=== PATIENT | male | born 1945 | race Caucasian/White ===

== ENCOUNTER 2017-06-21 19:06 | Emergency (ER) | payer OTHER ==
[2017-06-21 19:23] LABS: BASOPHILS % (AUTO) 0.7 % (0.0-5.0); EOSINOPHILS % (AUTO) 0.8 % (0.0-8.0); HEMATOCRIT 43.8 % (42-54); LYMPHOCYTES % (AUTO) 35.5 % (21.0-51.0); MEAN CORPUSCULAR HEMOGLOBIN 32.6 pg (27.0-33.0); MEAN CORPUSCULAR VOLUME 95.8 fL (79-99); MONOCYTES % (AUTO) 10.8 % (3.0-13.0); NEUTROPHILS % (AUTO) 52.2 % (40.0-77.0); PLATELET COUNT (AUTO) 198 K/uL (130-400); RED BLOOD CELL COUNT(AUTO) 4.57 MIL/uL (4.50-6.20); RED CELL DISTRIBUTION WIDTH 14.4 % (11.0-15.5); WHITE BLOOD COUNT (AUTO) 5.9 K/uL (4.8-10.8)
[2017-06-21 19:32] LABS: CREATININE 1.5 mg/dL (0.5-1.5); POTASSIUM 4.9 mmol/L (3.5-5.1)
[2017-06-21 19:36] LABS: ALBUMIN 3.7 g/dL (3.5-5.0); BILIRUBIN,TOTAL 0.6 mg/dL (0.2-1.0); TOTAL PROTEIN, SERUM 7.2 g/dL (6.0-8.3)
[2017-06-21 19:37] LABS: INR 0.93 (0.85-1.15); PARTIAL THROMBOPLASTIN TIME 25.9 SEC (26.3-35.5); PROTHROMBIN TIME 9.8 SEC (9.6-11.6)
[2017-06-21] MEDS ORDERED: ACETAMINOPHEN-CODEINE ELIXIR 5 ML UDCUP ONE (20:39)
== END 2017-06-21 22:07 | disposition home or self-care (01) ==
LOC: EDH 19:06
DX: S00.83XA Contusion of other part of head, initial encounter (principal); I10 Essential (primary) hypertension; E78.5 Hyperlipidemia, unspecified; F43.10 Post-traumatic stress disorder, unspecified; W18.39XA Other fall on same level, initial encounter; Y93.01 Activity, walking, marching and hiking; Y92.89 Other specified places as the place of occurrence of the external cause; Y99.8 Other external cause status
CPT/HCPCS: 36415; 70450; 70486; 80053; 84484; 85025; 85610; 85730; 93005

== ENCOUNTER 2018-02-27 14:13 | Emergency (ER) | payer OTHER ==
[2018-02-27 15:08] LABS: BASOPHILS % (AUTO) 0.6 % (0.0-5.0); EOSINOPHILS % (AUTO) 2.7 % (0.0-8.0); HEMATOCRIT 38.8 % (42-54); LYMPHOCYTES % (AUTO) 24.5 % (21.0-51.0); MEAN CORPUSCULAR HEMOGLOBIN 33.5 pg (27.0-33.0); MEAN CORPUSCULAR HGB CONC 34.8 g/dL (32.0-36.0); MEAN CORPUSCULAR VOLUME 96.3 fL (79-99); MONOCYTES % (AUTO) 8.4 % (3.0-13.0); NEUTROPHILS % (AUTO) 63.8 % (40.0-77.0); NUCLEATED RED BLOOD CELLS 0.1 % (0.0-0.19); PLATELET COUNT (AUTO) 215 K/uL (130-400); RED BLOOD CELL COUNT(AUTO) 4.03 MIL/uL (4.50-6.20); RED CELL DISTRIBUTION WIDTH 13.1 % (11.0-15.5); WHITE BLOOD COUNT (AUTO) 8.5 K/uL (4.8-10.8)
[2018-02-27 15:25] LABS: CREATININE 1.4 mg/dL (0.5-1.5); POTASSIUM 4.2 mmol/L (3.5-5.1)
[2018-02-27 15:30] LABS: ALBUMIN 3.9 g/dL (3.5-5.0); BILIRUBIN,TOTAL 0.4 mg/dL (0.2-1.0); TOTAL PROTEIN, SERUM 8.4 g/dL (6.0-8.3)
[2018-02-27 15:31] LABS: B-TYPE NATRIURETIC PEPTIDE 32 pg/mL (0-100)
[2018-02-27] MEDS ORDERED: HYOSCYAMINE SULFATE 0.125 MG TAB.SUBL SL ONE (16:11)
== END 2018-02-27 16:47 | disposition home or self-care (01) ==
LOC: EDH 14:13
DX: R60.9 Edema, unspecified (principal); G62.89 Other specified polyneuropathies; R10.9 Unspecified abdominal pain; E78.5 Hyperlipidemia, unspecified; I10 Essential (primary) hypertension; F43.10 Post-traumatic stress disorder, unspecified
CPT/HCPCS: 36415; 70450; 80053; 83880; 84484; 85025; 93005

== ENCOUNTER 2018-03-14 17:00 | Inpatient (IN) | payer OTHER ==
[~2018-03-14] VITALS: Ht 175.3 cm; Wt 85.6 kg
[2018-03-14 17:26] LABS: BASOPHILS % (AUTO) 0.7 % (0.0-5.0); EOSINOPHILS % (AUTO) 1.4 % (0.0-8.0); HEMATOCRIT 36.8 % (42-54); LYMPHOCYTES % (AUTO) 20.2 % (21.0-51.0); MEAN CORPUSCULAR HEMOGLOBIN 32.3 pg (27.0-33.0); MEAN CORPUSCULAR HGB CONC 33.6 g/dL (32.0-36.0); MEAN CORPUSCULAR VOLUME 96.2 fL (79-99); NEUTROPHILS % (AUTO) 68.7 % (40.0-77.0); NUCLEATED RED BLOOD CELLS 0.1 % (0.0-0.19); PLATELET COUNT (AUTO) 145 K/uL (130-400); RED BLOOD CELL COUNT(AUTO) 3.82 MIL/uL (4.50-6.20); RED CELL DISTRIBUTION WIDTH 12.8 % (11.0-15.5); WHITE BLOOD COUNT (AUTO) 8.1 K/uL (4.8-10.8)
[2018-03-14 17:36] LABS: CREATININE 1.2 mg/dL (0.5-1.5); POTASSIUM 3.8 mmol/L (3.5-5.1)
[2018-03-14 17:41] LABS: ALBUMIN 3.3 g/dL (3.5-5.0); BILIRUBIN,TOTAL 0.6 mg/dL (0.2-1.0); TOTAL PROTEIN, SERUM 7.8 g/dL (6.0-8.3)
[2018-03-14 17:49] LABS: CREATINE KINASE, TOTAL 52 U/L (21-232); MYOGLOBIN 52 ng/mL (10-92); TROPONIN I < 0.04 ng/mL (0.00-0.06)
[2018-03-14] MEDS ORDERED: CEFTRIAXONE SODIUM 1 GM ONE (17:53)
[2018-03-14] MEDS ORDERED: SODIUM CHLORIDE 0.9% 50 ML IV ONE (17:53)
[2018-03-14] MEDS ORDERED: LEVOFLOXACIN 750 MG/D5W 150 ML 150 ML ONE (18:11)
[2018-03-14] MEDS ORDERED: IPRATROPIUM/ALBUTEROL SULFATE 3 ML SOLUTION IH ONE ×3 (18:21→22:56)
[2018-03-14] MEDS ORDERED: ACETAMINOPHEN 325 MG TAB PO PRN (19:45)
[2018-03-14 21:45] VITALS: BP 136/71
[2018-03-14] MEDS: AZITHROMYCIN 500MG+NS 250ML 250 ML IV SCH (22:26)
[2018-03-14] MEDS: SODIUM CHLORIDE 0.9% 1000ML 1,000 ML IV SCH (22:27)
[2018-03-14] MEDS ORDERED: ALBUTEROL SULFATE 0.083% 2.5 MG/3 ML INH IH ONE (23:31)
[2018-03-15 00:08] VITALS: BP 125/64
[2018-03-15] MEDS: SODIUM CHLORIDE 0.9% 1000ML 1,000 ML IV SCH ×2 (03:45→17:38)
[2018-03-15 04:08] VITALS: BP 121/70
[2018-03-15 04:49] LABS: BASOPHILS % (AUTO) 0.7 % (0.0-5.0); EOSINOPHILS % (AUTO) 0.4 % (0.0-8.0); HEMATOCRIT 31.1 % (42-54); MEAN CORPUSCULAR HEMOGLOBIN 33.5 pg (27.0-33.0); MEAN CORPUSCULAR HGB CONC 34.9 g/dL (32.0-36.0); MEAN CORPUSCULAR VOLUME 96.1 fL (79-99); MONOCYTES % (AUTO) 8.8 % (3.0-13.0); NEUTROPHILS % (AUTO) 75.1 % (40.0-77.0); NUCLEATED RED BLOOD CELLS 0.1 % (0.0-0.19); PLATELET COUNT (AUTO) 154 K/uL (130-400); RED BLOOD CELL COUNT(AUTO) 3.24 MIL/uL (4.50-6.20); RED CELL DISTRIBUTION WIDTH 12.9 % (11.0-15.5); WHITE BLOOD COUNT (AUTO) 8.6 K/uL (4.8-10.8)
[2018-03-15 05:15] LABS: ALBUMIN 2.8 g/dL (3.5-5.0); BILIRUBIN,TOTAL 0.3 mg/dL (0.2-1.0); CREATININE 1.1 mg/dL (0.5-1.5); POTASSIUM 3.6 mmol/L (3.5-5.1); TOTAL PROTEIN, SERUM 6.7 g/dL (6.0-8.3)
[2018-03-15 08:19] VITALS: BP 123/72
[2018-03-15] MEDS ORDERED: IPRATROPIUM/ALBUTEROL SULFATE 3 ML SOLUTION IH SCH (10:00)
[2018-03-15] MEDS: IPRATROPIUM/ALBUTEROL SULFATE 3 ML SOLUTION IH SCH ×3 (11:10→23:01)
[2018-03-15] MEDS ORDERED: ALBUTEROL SULFATE 0.083% 2.5 MG/3 ML INH IH SCH ×2 (12:00→20:00)
[2018-03-15 12:44] VITALS: BP 131/66
[2018-03-15] MEDS: GUAIFENESIN-DM 200/20 MG 10 ML PO SCH ×3 (12:46→22:43)
[2018-03-15 16:19] VITALS: BP 138/75
[2018-03-15] MEDS: ACETAMINOPHEN-CODEINE 300/30MG TAB PO PRN (17:38)
[2018-03-15] MEDS: LEVOFLOXACIN 750 MG/D5W 150 ML 150 ML IV SCH (17:38)
[2018-03-15] MEDS: METHYLPREDNISOLONE SOD SUCC 40MG/ML 1ML IVP SCH ×2 (17:38→20:07)
[2018-03-15] MEDS: FAMOTIDINE 20MG TAB 20 MG TAB PO SCH (20:07)
[2018-03-15] MEDS: AZITHROMYCIN 500MG+NS 250ML 250 ML IV SCH (20:07)
[2018-03-15 20:08] VITALS: BP 134/74
[2018-03-15] MEDS ORDERED: ALPRAZOLAM 0.25 MG TABLET ONE (22:45)
[2018-03-16 00:08] VITALS: BP 136/78
[2018-03-16] MEDS: GUAIFENESIN-DM 200/20 MG 10 ML PO SCH ×4 (03:29→21:36)
[2018-03-16 04:08] VITALS: BP 130/75
[2018-03-16 04:11] LABS: BASOPHILS % (AUTO) 0.2 % (0.0-5.0); HEMATOCRIT 34.6 % (42-54); LYMPHOCYTES % (AUTO) 9.7 % (21.0-51.0); MEAN CORPUSCULAR HEMOGLOBIN 32.4 pg (27.0-33.0); MEAN CORPUSCULAR HGB CONC 33.5 g/dL (32.0-36.0); MEAN CORPUSCULAR VOLUME 96.6 fL (79-99); MONOCYTES % (AUTO) 1.5 % (3.0-13.0); NEUTROPHILS % (AUTO) 88.6 % (40.0-77.0); NUCLEATED RED BLOOD CELLS 0.1 % (0.0-0.19); PLATELET COUNT (AUTO) 147 K/uL (130-400); RED BLOOD CELL COUNT(AUTO) 3.59 MIL/uL (4.50-6.20); RED CELL DISTRIBUTION WIDTH 13.1 % (11.0-15.5); WHITE BLOOD COUNT (AUTO) 4.8 K/uL (4.8-10.8)
[2018-03-16 04:18] LABS: CREATININE 1.4 mg/dL (0.5-1.5); POTASSIUM 3.8 mmol/L (3.5-5.1)
[2018-03-16] MEDS: IPRATROPIUM/ALBUTEROL SULFATE 3 ML SOLUTION IH SCH ×4 (06:16→23:53)
[2018-03-16 07:00] VITALS: BP 131/71
[2018-03-16] MEDS: METHYLPREDNISOLONE SOD SUCC 40MG/ML 1ML IVP SCH ×2 (09:55→14:12)
[2018-03-16] MEDS: FAMOTIDINE 20MG TAB 20 MG TAB PO SCH ×2 (09:55→21:35)
[2018-03-16] MEDS: ENOXAPARIN SODIUM 30 MG/0.3 ML SQ SCH (09:56)
[2018-03-16 11:00] VITALS: BP 136/77
[2018-03-16] MEDS: CEFEPIME HCL 1 GM VIAL IVP SCH ×2 (14:12→21:36)
[2018-03-16 16:00] VITALS: BP 139/82
[2018-03-16] MEDS: ACETAMINOPHEN-CODEINE 300/30MG TAB PO PRN (16:54)
[2018-03-16] MEDS: SODIUM CHLORIDE 0.9% 1000ML 1,000 ML IV SCH (17:42)
[2018-03-16] MEDS: LEVOFLOXACIN 750 MG/D5W 150 ML 150 ML IV SCH (17:50)
[2018-03-16 19:15] VITALS: BP 128/85
[2018-03-16] MEDS: PREDNISONE 20 MG TABLET PO SCH (21:35)
[2018-03-16] MEDS: ALPRAZOLAM 0.25 MG TABLET PO PRN (23:07)
[2018-03-17 00:10] VITALS: BP 147/81
[2018-03-17 04:10] VITALS: BP 131/69
[2018-03-17] MEDS: GUAIFENESIN-DM 200/20 MG 10 ML PO SCH ×4 (04:20→21:21)
[2018-03-17] MEDS: CEFEPIME HCL 1 GM VIAL IVP SCH ×3 (05:30→21:21)
[2018-03-17 05:58] LABS: BASOPHILS % (AUTO) 0.1 % (0.0-5.0); HEMATOCRIT 30.9 % (42-54); LYMPHOCYTES % (AUTO) 7.9 % (21.0-51.0); MEAN CORPUSCULAR HEMOGLOBIN 33.5 pg (27.0-33.0); MEAN CORPUSCULAR HGB CONC 34.9 g/dL (32.0-36.0); MEAN CORPUSCULAR VOLUME 96.1 fL (79-99); MONOCYTES % (AUTO) 4.1 % (3.0-13.0); NEUTROPHILS % (AUTO) 87.9 % (40.0-77.0); NUCLEATED RED BLOOD CELLS 0.1 % (0.0-0.19); PLATELET COUNT (AUTO) 168 K/uL (130-400); RED BLOOD CELL COUNT(AUTO) 3.22 MIL/uL (4.50-6.20); RED CELL DISTRIBUTION WIDTH 13.1 % (11.0-15.5)
[2018-03-17 06:05] LABS: CREATININE 1.2 mg/dL (0.5-1.5); POTASSIUM 4.1 mmol/L (3.5-5.1)
[2018-03-17] MEDS: IPRATROPIUM/ALBUTEROL SULFATE 3 ML SOLUTION IH SCH ×3 (06:56→18:40)
[2018-03-17 08:00] VITALS: BP 137/75
[2018-03-17] MEDS: PREDNISONE 20 MG TABLET PO SCH ×2 (10:09→20:22)
[2018-03-17] MEDS: FAMOTIDINE 20MG TAB 20 MG TAB PO SCH ×2 (10:09→20:22)
[2018-03-17] MEDS: ENOXAPARIN SODIUM 30 MG/0.3 ML SQ SCH (10:10)
[2018-03-17] MEDS: ACETAMINOPHEN-CODEINE 300/30MG TAB PO PRN ×2 (10:12→16:32)
[2018-03-17 11:00] VITALS: BP 128/75
[2018-03-17 16:00] VITALS: BP 133/73
[2018-03-17] MEDS: LEVOFLOXACIN 750 MG/D5W 150 ML 150 ML IV SCH (16:30)
[2018-03-17] MEDS: SODIUM CHLORIDE 0.9% 1000ML 1,000 ML IV SCH (17:42)
[2018-03-17 19:10] VITALS: BP 128/74
[2018-03-17] MEDS ORDERED: FLUO-126 PO (22:00)
[2018-03-17] MEDS ORDERED: MULT-248 PO (22:00)
[2018-03-17] MEDS ORDERED: ALPR0.5T8 PO (22:00)
[2018-03-17] MEDS ORDERED: CETI10TA57 PO (22:00)
[2018-03-17] MEDS ORDERED: PREG100C PO (22:00)
[2018-03-17] MEDS ORDERED: VITA1CAP85 PO (22:00)
[2018-03-17] MEDS ORDERED: MELA3TAB PO (22:00)
[2018-03-17] MEDS ORDERED: FLUT16H NS (22:00)
[2018-03-17] MEDS ORDERED: HYDR-4068 PO (22:00)
[2018-03-17] MEDS ORDERED: PRAV20TA4 PO (22:00)
[2018-03-17] MEDS ORDERED: CHOL100044 PO (22:00)
[2018-03-17] MEDS: ALPRAZOLAM 0.25 MG TABLET PO PRN (22:53)
[2018-03-18] VITALS (7 sets, daily range): BP systolic 132–144; BP diastolic 73–80
[2018-03-18] MEDS: IPRATROPIUM/ALBUTEROL SULFATE 3 ML SOLUTION IH SCH ×4 (00:09→18:00)
[2018-03-18] MEDS ORDERED: ALPRAZOLAM 0.5 MG TABLET PO PRN (01:45)
[2018-03-18] MEDS: GUAIFENESIN-DM 200/20 MG 10 ML PO SCH ×4 (03:58→21:15)
[2018-03-18] MEDS: CEFEPIME HCL 1 GM VIAL IVP SCH ×3 (05:11→21:15)
[2018-03-18 05:47] LABS: BASOPHILS % (AUTO) 0.1 % (0.0-5.0); HEMATOCRIT 31.9 % (42-54); LYMPHOCYTES % (AUTO) 7.5 % (21.0-51.0); MEAN CORPUSCULAR HEMOGLOBIN 32.4 pg (27.0-33.0); MEAN CORPUSCULAR HGB CONC 34.1 g/dL (32.0-36.0); MONOCYTES % (AUTO) 6.5 % (3.0-13.0); NEUTROPHILS % (AUTO) 85.9 % (40.0-77.0); NUCLEATED RED BLOOD CELLS 0.1 % (0.0-0.19); PLATELET COUNT (AUTO) 148 K/uL (130-400); RED BLOOD CELL COUNT(AUTO) 3.36 MIL/uL (4.50-6.20); RED CELL DISTRIBUTION WIDTH 13.5 % (11.0-15.5); WHITE BLOOD COUNT (AUTO) 8.1 K/uL (4.8-10.8)
[2018-03-18 05:57] LABS: CREATININE 1.3 mg/dL (0.5-1.5)
[2018-03-18] MEDS: ***HM***Cholecalciferol (Vitamin D3) 1,000 UNIT PO SCH (09:00)
[2018-03-18] MEDS: MULTIVITAMIN WITH MINERALS TABLET PO SCH (10:24)
[2018-03-18] MEDS: VITAMIN B COMPLEX 1 CAPSULE PO SCH (10:24)
[2018-03-18] MEDS: FAMOTIDINE 20MG TAB 20 MG TAB PO SCH ×2 (10:24→20:14)
[2018-03-18] MEDS: FLUOXETINE HCL 20 MG CAPSULE PO SCH (10:24)
[2018-03-18] MEDS: PREGABALIN 100 MG CAPSULE PO SCH ×2 (10:24→20:14)
[2018-03-18] MEDS: CETIRIZINE HCL 5 MG TABLET PO SCH (10:24)
[2018-03-18] MEDS: PREDNISONE 20 MG TABLET PO SCH ×2 (10:24→20:14)
[2018-03-18] MEDS: ENOXAPARIN SODIUM 30 MG/0.3 ML SQ SCH (10:29)
[2018-03-18] MEDS: FLUTICASONE PROPIONATE 50MCG/SPRAY 16 GM BOTTLE NS SCH (10:31)
[2018-03-18] MEDS: ACETAMINOPHEN-CODEINE 300/30MG TAB PO PRN (13:24)
[2018-03-18] MEDS: LEVOFLOXACIN 750 MG/D5W 150 ML 150 ML IV SCH (16:52)
[2018-03-18] MEDS ORDERED: ATORVASTATIN CALCIUM 10 MG TABLET PO SCH (21:00)
[2018-03-19] MEDS: IPRATROPIUM/ALBUTEROL SULFATE 3 ML SOLUTION IH SCH ×3 (00:30→11:07)
[2018-03-19] MEDS: GUAIFENESIN-DM 200/20 MG 10 ML PO SCH ×3 (03:24→16:23)
[2018-03-19 04:10] VITALS: BP 134/77
[2018-03-19] MEDS: CEFEPIME HCL 1 GM VIAL IVP SCH ×2 (04:59→14:41)
[2018-03-19 05:20] LABS: BASOPHILS % (AUTO) 0.1 % (0.0-5.0); HEMATOCRIT 32.6 % (42-54); LYMPHOCYTES % (AUTO) 9.3 % (21.0-51.0); MEAN CORPUSCULAR HEMOGLOBIN 33.1 pg (27.0-33.0); MEAN CORPUSCULAR HGB CONC 34.8 g/dL (32.0-36.0); MEAN CORPUSCULAR VOLUME 95.2 fL (79-99); NEUTROPHILS % (AUTO) 83.6 % (40.0-77.0); PLATELET COUNT (AUTO) 166 K/uL (130-400); RED BLOOD CELL COUNT(AUTO) 3.42 MIL/uL (4.50-6.20); WHITE BLOOD COUNT (AUTO) 7.1 K/uL (4.8-10.8)
[2018-03-19 05:37] LABS: CREATININE 1.2 mg/dL (0.5-1.5); POTASSIUM 4.6 mmol/L (3.5-5.1)
[2018-03-19] MEDS: FAMOTIDINE 20MG TAB 20 MG TAB PO SCH (08:06)
[2018-03-19] MEDS: MULTIVITAMIN WITH MINERALS TABLET PO SCH (08:06)
[2018-03-19] MEDS: VITAMIN B COMPLEX 1 CAPSULE PO SCH (08:06)
[2018-03-19] MEDS: CETIRIZINE HCL 5 MG TABLET PO SCH (08:06)
[2018-03-19] MEDS: FLUOXETINE HCL 20 MG CAPSULE PO SCH (08:06)
[2018-03-19] MEDS: ENOXAPARIN SODIUM 30 MG/0.3 ML SQ SCH (08:07)
[2018-03-19] MEDS: PREDNISONE 20 MG TABLET PO SCH (08:07)
[2018-03-19] MEDS: PREGABALIN 100 MG CAPSULE PO SCH (08:07)
[2018-03-19] MEDS: ***HM***Cholecalciferol (Vitamin D3) 1,000 UNIT PO SCH (08:07)
[2018-03-19 08:40] VITALS: BP 150/78
[2018-03-19] MEDS: FLUTICASONE PROPIONATE 50MCG/SPRAY 16 GM BOTTLE NS SCH (09:00)
[2018-03-19 12:04] VITALS: BP 131/72
[2018-03-19] MEDS ORDERED: LEVO500T89 PO (13:36)
[2018-03-19] MEDS: LEVOFLOXACIN 750 MG/D5W 150 ML 150 ML IV SCH (16:19)
[2018-03-19] MEDS: ACETAMINOPHEN-CODEINE 300/30MG TAB PO PRN (16:37)
== END 2018-03-19 17:59 | disposition home or self-care (01) | DRG 871 ==
LOC: EDH 17:00 → EDHIP 18:20 → 3DH 20:13
PROVIDERS: ADMIT Hospitalist; ATTEND Hospitalist
DX: A41.9 Sepsis, unspecified organism (principal); J18.9 Pneumonia, unspecified organism; J96.90 Respiratory failure, unspecified, unspecified whether with hypoxia or hypercapnia; N17.9 Acute kidney failure, unspecified; I10 Essential (primary) hypertension; E78.5 Hyperlipidemia, unspecified; B95.4 Other streptococcus as the cause of diseases classified elsewhere; B96.89 Other specified bacterial agents as the cause of diseases classified elsewhere; F43.10 Post-traumatic stress disorder, unspecified; N40.0 Benign prostatic hyperplasia without lower urinary tract symptoms; F32.9 Major depressive disorder, single episode, unspecified; G62.9 Polyneuropathy, unspecified; R53.81 Other malaise; Z88.8 Allergy status to other drugs, medicaments and biological substances
CPT/HCPCS: 36415; 71045; 71250; 80048; 80053; 82550; 82948; 83605; 83874; 84484; 85025; 86140; 87040; 87077; 87186; 92610; 93005; 94640; 94664; A4218; J0456; J0692; J0696; J1650; J1956; J2920; J7030

== ENCOUNTER 2019-01-08 16:28 | Emergency (ER) | payer OTHER ==
[~2019-01-08 16:28] MED LIST: ALPR0.5T8 PO; CETI10TA57 PO; CHOL100044 PO; FLUO-126 PO; FLUT16H NS; FURO20TA6 PO; GEMF600T5 PO; HYDR-4068 PO; LEVO500T2 PO; MELA3TAB PO; MULT-248 PO; OMEP40CA37 PO; PREG100C PO; RANI150T7 PO; VITA1CAP85 PO
== END 2019-01-08 18:04 | disposition home or self-care (01) ==
LOC: EDH 16:28
DX: S93.491A Sprain of other ligament of right ankle, initial encounter (principal); R20.2 Paresthesia of skin; G62.89 Other specified polyneuropathies; F32.9 Major depressive disorder, single episode, unspecified; E78.5 Hyperlipidemia, unspecified; I10 Essential (primary) hypertension; F43.10 Post-traumatic stress disorder, unspecified; Z88.8 Allergy status to other drugs, medicaments and biological substances; X50.0XXA Overexertion from strenuous movement or load, initial encounter; Y93.89 Activity, other specified; Y92.098 Other place in other non-institutional residence as the place of occurrence of the external cause; Y99.8 Other external cause status
CPT/HCPCS: 73610; 73620

== ENCOUNTER 2020-03-06 01:56 | Inpatient (IN) | payer OTHER, MEDICARE ==
[2020-03-06] VITALS (7 sets, daily range): BP systolic 103–133; BP diastolic 56–78
[~2020-03-06] VITALS: Ht 175.3 cm; Wt 76.3 kg
[~2020-03-06 01:56] MED LIST changes: -FLUO-126 PO; +FLUO20CA35 PO; -MELA3TAB PO; +MELA3TAB41 PO; +OMEP40CA13 PO; -OMEP40CA37 PO
[2020-03-06 02:33] LABS: BASOPHILS % (AUTO) 0.4 % (0.0-5.0); EOSINOPHILS % (AUTO) 3.4 % (0.0-8.0); HEMATOCRIT 40.8 % (42-54); LYMPHOCYTES % (AUTO) 38.4 % (21.0-51.0); MEAN CORPUSCULAR HEMOGLOBIN 32.1 pg (27.0-33.0); MEAN CORPUSCULAR HGB CONC 33.1 g/dL (32.0-36.0); MEAN CORPUSCULAR VOLUME 96.9 fL (79-99); MONOCYTES % (AUTO) 11.4 % (3.0-13.0); NEUTROPHILS % (AUTO) 46.2 % (40.0-77.0); PLATELET COUNT (AUTO) 149 K/uL (130-400); RED BLOOD CELL COUNT(AUTO) 4.21 MIL/uL (4.50-6.20); RED CELL DISTRIBUTION WIDTH 13.2 % (11.0-15.5); WHITE BLOOD COUNT (AUTO) 5.6 K/uL (4.8-10.8)
[2020-03-06] MEDS ORDERED: THIAMINE HCL 100 MG/ML 2ML VIAL ONE (02:42)
[2020-03-06 02:43] LABS: CARBON DIOXIDE 25 mmol/L (21-32); CHLORIDE 100 mmol/L (101-111); CREATININE 1.2 mg/dL (0.5-1.5); GLOMERULAR FILTR. RATE CALC 63 mL/min (>60); GLUCOSE,RANDOM 139 mg/dL (70-105); POTASSIUM 3.8 mmol/L (3.5-5.1); SODIUM SERUM 136 mmol/L (136-145); UREA NITROGEN, BLOOD 16 mg/dL (7-18)
[2020-03-06 02:45] LABS: INR 0.9 (0.85-1.15); PARTIAL THROMBOPLASTIN TIME 27.5 SEC (26.3-35.5); PROTHROMBIN TIME 9.8 SEC (9.6-11.6)
[2020-03-06 02:47] LABS: ACETAMINOPHEN 9 mcg/mL (10-29); ALANINE AMINOTRANSFERASE 18 U/L (12-78); ALBUMIN 3.3 g/dL (3.5-5.0); ALCOHOL, BLOOD 197 mg/dL (0-10); ASPARTATE AMINOTRANSFERASE 29 U/L (10-37); BILIRUBIN,TOTAL 0.3 mg/dL (0.2-1.0); LIPASE 88 U/L (114-286); SALICYLATE < 2.8 mg/dL (2.8-20.0); TOTAL PROTEIN, SERUM 6.9 g/dL (6.0-8.3)
[2020-03-06 03:19] LABS: APPEARANCE,URINE CLEAR (CLEAR); BILIRUBIN,URINE NEGATIVE (NEGATIVE); GLUCOSE, URINE (UA) NEGATIVE (NEGATIVE); KETONES,URINE NEGATIVE (NEGATIVE); LEUKOCYTE ESTERASE ,URINE SMALL (NEGATIVE); NITRATE,URINE NEGATIVE (NEGATIVE); OCCULT BLOOD,URINE TRACE-INTACT (NEGATIVE); PH,URINE 5.5 (5.0-8.0); PROTEIN,URINE NEGATIVE (NEGATIVE); UROBILINOGEN,URINE 0.2 mg/dL (0.2-1.0)
[2020-03-06 03:23] LABS: COLOR,URINE STRAW (YELLOW)
[2020-03-06 03:24] LABS: BACTERIA,URINE None Seen /HPF (None Seen); RBC,URINE 0-1 /HPF (0-1); SQUAMOUS EPITHELIAL CELL,UR Rare /HPF (0-2); WBC,URINE 0-1 /HPF (0-1)
[2020-03-06 03:29] LABS: AMPHET/METH SCREEN,URINE NEGATIVE (NEGATIVE); BARBITURATE SCREEN, URINE NEGATIVE (NEGATIVE); BENZODIAZEPINES SCREEN,URINE POSITIVE (NEGATIVE); CANNABINOID SCREEN,URINE NEGATIVE (NEGATIVE); COCAINE SCREEN,URINE NEGATIVE (NEGATIVE); OPIATE SCREEN,URINE NEGATIVE (NEGATIVE); PHENCYCLIDINE SCREEN,URINE NEGATIVE (NEGATIVE)
[2020-03-06] MEDS ORDERED: FENTANYL 2500MCG+NS 250ML 250 ML IV ONE ×2 (03:57→21:04)
[2020-03-06] MEDS ORDERED: MIDAZOLAM HCL 5 MG/ML 2ML VIAL IV ONE (03:57)
[2020-03-06] MEDS ORDERED: SODIUM CHLORIDE 0.9% 50 ML IV ONE (03:58)
[2020-03-06 04:34] LABS: ABG HCO3 22.1 mmol/L (21.0-28.0); ABG OXYGEN SATURATION 98.4 % (95.0-99.0); ABG PCO2 48 mmHg (35-48)
[2020-03-06] MEDS ORDERED: MIDAZOLAM HCL 1 MG/ML 2ML VIAL ONE (04:49)
[2020-03-06] MEDS: CEFTRIAXONE SODIUM 1 GM IV SCH (05:30)
[2020-03-06] MEDS: SODIUM CHLORIDE 0.9% 1000ML 1,000 ML IV SCH ×2 (05:30→15:30)
[2020-03-06] MEDS ORDERED: ONDANSETRON HCL 4 MG/2 ML VIAL IV PRN ×2 (05:30→12:45)
[2020-03-06] MEDS ORDERED: POTASSIUM CHLORIDE 20 MEQ ERTAB PO PRN (05:45)
[2020-03-06] MEDS ORDERED: LIDOCAINE HCL-MPF 1% 2ML VIAL IV PRN (05:45)
[2020-03-06] MEDS ORDERED: CEFTRIAXONE SODIUM 1 GM ONE (06:12)
[2020-03-06] MEDS ORDERED: DEXMEDETOMIDINE HCL 200 MCG in SODIUM CHLORIDE 0.9% 50 ML IV SCH (06:30)
[2020-03-06] MEDS ORDERED: ALBUTEROL SULFATE 0.083% 2.5 MG/3 ML INH IH ONE ×2 (06:42→12:35)
[2020-03-06] MEDS: ALBUTEROL SULFATE 0.083% 2.5 MG/3 ML INH IH SCH ×3 (06:45→18:26)
[2020-03-06] MEDS ORDERED: MIDAZOLAM 100MG-0.9% NS 100ML 100 ML IV SCH (07:15)
[2020-03-06] MEDS ORDERED: ENOXAPARIN SODIUM 40 MG/0.4 ML SYRINGE SQ ONE (07:46)
[2020-03-06] MEDS ORDERED: FAMOTIDINE/PF 20 MG/2 ML VIAL IV ONE (07:47)
[2020-03-06] MEDS: FAMOTIDINE/PF 20 MG/2 ML VIAL IV SCH ×2 (09:00→23:32)
[2020-03-06] MEDS: ENOXAPARIN SODIUM 40 MG/0.4 ML SYRINGE SQ SCH (09:00)
[2020-03-06] MEDS ORDERED: LORAZEPAM 2 MG/ML 1 ML VIAL IVP PRN (12:45)
[2020-03-06] MEDS ORDERED: PHARMACY COMMUNICATION MISC PRN (12:45)
[2020-03-06] MEDS ORDERED: CHLORDIAZEPOXIDE HCL 25 MG CAP PO PRN (12:45)
[2020-03-06 14:57] LABS: ABG BASE EXCESS -0.2 mmol/L (-2.0-3.0); ABG HCO3 22.2 mmol/L (21.0-28.0); ABG OXYGEN SATURATION 95.6 % (95.0-99.0); ABG PCO2 31 mmHg (35-48)
[2020-03-06] MEDS ORDERED: PROPOFOL 1000 MG/100 ML 100 ML IV ONE (15:37)
[2020-03-06] MEDS ORDERED: SODIUM CHLORIDE 0.9% 1000ML 2,000 ML IV ONE (16:00)
[2020-03-06] MEDS: CHLORHEXIDINE GLUCONATE 473 ML MOUTHWASH MM SCH (21:00)
[2020-03-07] VITALS (21 sets, daily range): BP systolic 99–139; BP diastolic 53–80
[2020-03-07] MEDS: ALBUTEROL SULFATE 0.083% 2.5 MG/3 ML INH IH SCH ×5 (00:12→23:30)
[2020-03-07] MEDS: SODIUM CHLORIDE 0.9% 1000ML 1,000 ML IV SCH (01:55)
[2020-03-07] MEDS: PROPOFOL 1000 MG/100 ML 100 ML IV SCH ×2 (02:12→20:05)
--- NOTE | 2020-03-07 02:23 | NUR ---
ANTONIO Garces was paged and he came and gvae order to give 1 amp of D50 IVP.
[2020-03-07] MEDS ORDERED: DEXTROSE 50%-WATER 50 ML DISP.SYRIN IV ONE (02:25)
[2020-03-07] MEDS ORDERED: DEXTROSE 50%-WATER 25 GM/50 ML VIAL IV SCH (02:30)
[2020-03-07 03:34] LABS: BASOPHILS % (AUTO) 0.3 % (0.0-5.0); EOSINOPHILS % (AUTO) 0.4 % (0.0-8.0); HEMATOCRIT 36.1 % (42-54); LYMPHOCYTES % (AUTO) 10.4 % (21.0-51.0); MEAN CORPUSCULAR HEMOGLOBIN 31.7 pg (27.0-33.0); MEAN CORPUSCULAR VOLUME 96.3 fL (79-99); MONOCYTES % (AUTO) 7.8 % (3.0-13.0); NEUTROPHILS % (AUTO) 80.7 % (40.0-77.0); PLATELET COUNT (AUTO) 115 K/uL (130-400); RED BLOOD CELL COUNT(AUTO) 3.75 MIL/uL (4.50-6.20); RED CELL DISTRIBUTION WIDTH 13.4 % (11.0-15.5); WHITE BLOOD COUNT (AUTO) 9.5 K/uL (4.8-10.8)
[2020-03-07 03:45] LABS: ALBUMIN 2.2 g/dL (3.5-5.0); BILIRUBIN,TOTAL 0.6 mg/dL (0.2-1.0); CREATININE 0.9 mg/dL (0.5-1.5); MAGNESIUM 1.3 mg/dL (1.80-2.40); PHOSPHORUS 1.4 mg/dL (2.5-4.9); TOTAL PROTEIN, SERUM 4.9 g/dL (6.0-8.3)
[2020-03-07 03:47] LABS: POTASSIUM 2.7 mmol/L (3.5-5.1)
[2020-03-07 04:50] LABS: ABG BASE EXCESS -0.5 mmol/L (-2.0-3.0); ABG HCO3 21.5 mmol/L (21.0-28.0); ABG OXYGEN SATURATION 97.7 % (95.0-99.0); ABG PCO2 29 mmHg (35-48)
[2020-03-07] MEDS: CEFTRIAXONE SODIUM 1 GM IV SCH (05:28)
[2020-03-07] MEDS: POTASSIUM CHLORIDE 20MEQ/100ML 100 ML IV PRN ×2 (05:31→09:11)
[2020-03-07] MEDS: DEXTROSE 5 %-0.45 % NACL 1,000 ML IV SCH ×2 (06:48→20:07)
[2020-03-07] MEDS ORDERED: FLUO20SO2 PO (07:24)
[2020-03-07] MEDS ORDERED: BENZ200C53 PO (07:24)
--- NOTE | 2020-03-07 07:25 | NUR ---
pATIENT REMAINED VENTED AND SEDATED ENDORSED HOME MEDS AND CELLPHONE AND PERSONAL BELONGINGS TO INCOMING nod TO BE TURNED OVER TO FAMILY .
[2020-03-07] MEDS ORDERED: GLUCAGON 1MG KIT 1 MG ML IM PRN (07:30)
[2020-03-07] MEDS: INSULIN HUMULIN R 100 UNIT/ML 3ML SQ SCH ×4 (07:30→21:00)
[2020-03-07] MEDS ORDERED: DEXTROSE 50%-WATER 50 ML DISP.SYRIN IV PRN (07:30)
[2020-03-07] MEDS: THIAMINE HCL 100 MG/ML 2ML VIAL IM SCH (08:59)
[2020-03-07] MEDS: ENOXAPARIN SODIUM 40 MG/0.4 ML SYRINGE SQ SCH (09:01)
[2020-03-07] MEDS: FOLIC ACID 1 MG TABLET PO SCH (09:01)
[2020-03-07] MEDS: MULTIVITAMIN TABLET PO SCH (09:02)
[2020-03-07] MEDS: FAMOTIDINE/PF 20 MG/2 ML VIAL IV SCH ×2 (09:09→20:05)
[2020-03-07] MEDS: MAGNESIUM 2GM PREMIX 50ML 50 ML IV PRN (09:10)
[2020-03-07] MEDS: CHLORHEXIDINE GLUCONATE 473 ML MOUTHWASH MM SCH ×2 (09:11→21:07)
--- NOTE | 2020-03-07 18:49 | NUR ---
ASSESSMENT PATIENT WAS WEANED OFF SEDATION AT 1100AM AND BREATHING TRAILS WERE STARTED. PATIENT REMAINS SEDATED EVEN WITHOUT MEDS. AT 1600 PT WAS PUT BACK ON VENT AND BREATHING TRAILS WILL BE CONTINUED TOMORROW. DAUGHTER WAS UPDATED ON PATIENTS CONDITION 3 TIMES DURING THE SHIFT.PTHAS BEEN SR WITH OCCASIONAL PVCs. will continue to monitor.
--- NOTE | 2020-03-07 18:50 | NUR ---
cm note call made to listed phone #s and no answer to calls, left message pending callback. will continue to followup
[2020-03-08] VITALS (17 sets, daily range): BP systolic 95–154; BP diastolic 60–81
[2020-03-08 03:51] LABS: HEMATOCRIT 37.3 % (42-54); MEAN CORPUSCULAR HEMOGLOBIN 31.9 pg (27.0-33.0); MEAN CORPUSCULAR VOLUME 96.6 fL (79-99); RED BLOOD CELL COUNT(AUTO) 3.86 MIL/uL (4.50-6.20); WHITE BLOOD COUNT (AUTO) 8.7 K/uL (4.8-10.8)
[2020-03-08 04:07] LABS: ALBUMIN 2.5 g/dL (3.5-5.0); BILIRUBIN,TOTAL 0.6 mg/dL (0.2-1.0); CREATININE 1.2 mg/dL (0.5-1.5); MAGNESIUM 2.2 mg/dL (1.80-2.40); PHOSPHORUS 2.3 mg/dL (2.5-4.9); POTASSIUM 3.6 mmol/L (3.5-5.1); TOTAL PROTEIN, SERUM 6.2 g/dL (6.0-8.3)
[2020-03-08] MEDS: CEFTRIAXONE SODIUM 1 GM IV SCH (05:34)
[2020-03-08] MEDS: POTASSIUM CHLORIDE 10% ELIXIR 20 MEQ/15 ML UDCUP PO PRN (05:38)
[2020-03-08] MEDS: ALBUTEROL SULFATE 0.083% 2.5 MG/3 ML INH IH SCH ×3 (06:24→19:01)
[2020-03-08] MEDS: INSULIN HUMULIN R 100 UNIT/ML 3ML SQ SCH ×4 (07:30→19:54)
[2020-03-08] MEDS: FAMOTIDINE/PF 20 MG/2 ML VIAL IV SCH ×2 (09:12→19:39)
[2020-03-08] MEDS: THIAMINE HCL 100 MG/ML 2ML VIAL IM SCH (09:13)
[2020-03-08] MEDS: MULTIVITAMIN TABLET PO SCH (09:14)
[2020-03-08] MEDS: FOLIC ACID 1 MG TABLET PO SCH (09:14)
[2020-03-08] MEDS: ENOXAPARIN SODIUM 40 MG/0.4 ML SYRINGE SQ SCH (09:14)
[2020-03-08] MEDS ORDERED: LORAZEPAM 2 MG/ML 1 ML VIAL ONE (09:40)
[2020-03-08] MEDS: CHLORHEXIDINE GLUCONATE 473 ML MOUTHWASH MM SCH ×2 (09:52→19:40)
[2020-03-08] MEDS: DEXMEDETOMIDINE HCL 400 MCG in SODIUM CHLORIDE 0.9% 100 ML IV SCH (10:14)
[2020-03-08] MEDS: THIAMINE HCL 100 MG, FOLIC ACID 1 MG, M.V.I. IV [ADULT] 10 ML in SODIUM CHLORIDE 0.9% 1... IV SCH (10:16)
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
[2020-03-08 15:12] LABS: ABG BASE EXCESS -4.9 mmol/L (-2.0-3.0); ABG HCO3 19.1 mmol/L (21.0-28.0); ABG PCO2 33 mmHg (35-48)
[2020-03-08] MEDS: LORAZEPAM 2 MG/ML 1 ML VIAL IVP PRN (19:40)
[2020-03-09] VITALS (17 sets, daily range): BP systolic 112–168; BP diastolic 51–88
[2020-03-09] MEDS: ALBUTEROL SULFATE 0.083% 2.5 MG/3 ML INH IH SCH ×4 (00:14→18:36)
[2020-03-09 03:55] LABS: BASOPHILS % (AUTO) 0.3 % (0.0-5.0); EOSINOPHILS % (AUTO) 2.8 % (0.0-8.0); HEMATOCRIT 42.2 % (42-54); LYMPHOCYTES % (AUTO) 14.4 % (21.0-51.0); MEAN CORPUSCULAR HEMOGLOBIN 31.7 pg (27.0-33.0); MEAN CORPUSCULAR HGB CONC 32.9 g/dL (32.0-36.0); MEAN CORPUSCULAR VOLUME 96.3 fL (79-99); MONOCYTES % (AUTO) 8.4 % (3.0-13.0); NEUTROPHILS % (AUTO) 73.8 % (40.0-77.0); PLATELET COUNT (AUTO) 123 K/uL (130-400); RED BLOOD CELL COUNT(AUTO) 4.38 MIL/uL (4.50-6.20); RED CELL DISTRIBUTION WIDTH 13.5 % (11.0-15.5); WHITE BLOOD COUNT (AUTO) 7.5 K/uL (4.8-10.8)
[2020-03-09 04:08] LABS: ALBUMIN 2.8 g/dL (3.5-5.0); BILIRUBIN,TOTAL 0.8 mg/dL (0.2-1.0); MAGNESIUM 2.2 mg/dL (1.80-2.40); PHOSPHORUS 2.6 mg/dL (2.5-4.9); POTASSIUM 4.4 mmol/L (3.5-5.1); TOTAL PROTEIN, SERUM 7.2 g/dL (6.0-8.3)
[2020-03-09] MEDS: CEFTRIAXONE SODIUM 1 GM IV SCH (04:20)
[2020-03-09] MEDS: INSULIN HUMULIN R 100 UNIT/ML 3ML SQ SCH ×4 (06:07→21:00)
[2020-03-09] MEDS: THIAMINE HCL 100 MG, FOLIC ACID 1 MG, M.V.I. IV [ADULT] 10 ML in SODIUM CHLORIDE 0.9% 1... IV SCH (06:44)
[2020-03-09] MEDS: MULTIVITAMIN TABLET PO SCH (08:02)
[2020-03-09] MEDS: FAMOTIDINE/PF 20 MG/2 ML VIAL IV SCH ×2 (08:02→21:15)
[2020-03-09] MEDS: ENOXAPARIN SODIUM 40 MG/0.4 ML SYRINGE SQ SCH (08:02)
[2020-03-09] MEDS: LORAZEPAM 2 MG/ML 1 ML VIAL IVP PRN ×3 (08:10→21:48)
[2020-03-09] MEDS: CHLORHEXIDINE GLUCONATE 473 ML MOUTHWASH MM SCH ×2 (08:10→21:15)
[2020-03-09] MEDS: DEXMEDETOMIDINE HCL 400 MCG in SODIUM CHLORIDE 0.9% 100 ML IV SCH (11:10)
[2020-03-10] VITALS (21 sets, daily range): BP systolic 99–196; BP diastolic 53–98
[2020-03-10] MEDS: ALBUTEROL SULFATE 0.083% 2.5 MG/3 ML INH IH SCH ×5 (00:18→23:54)
[2020-03-10] MEDS: LORAZEPAM 2 MG/ML 1 ML VIAL IVP PRN ×4 (01:47→20:10)
[2020-03-10 03:36] LABS: BASOPHILS % (AUTO) 0.3 % (0.0-5.0); EOSINOPHILS % (AUTO) 2.8 % (0.0-8.0); HEMATOCRIT 43.8 % (42-54); LYMPHOCYTES % (AUTO) 13.9 % (21.0-51.0); MEAN CORPUSCULAR HEMOGLOBIN 31.6 pg (27.0-33.0); MEAN CORPUSCULAR HGB CONC 33.3 g/dL (32.0-36.0); MEAN CORPUSCULAR VOLUME 94.8 fL (79-99); MONOCYTES % (AUTO) 9.3 % (3.0-13.0); NEUTROPHILS % (AUTO) 73.3 % (40.0-77.0); PLATELET COUNT (AUTO) 142 K/uL (130-400); RED BLOOD CELL COUNT(AUTO) 4.62 MIL/uL (4.50-6.20); RED CELL DISTRIBUTION WIDTH 13.2 % (11.0-15.5); WHITE BLOOD COUNT (AUTO) 7.5 K/uL (4.8-10.8)
[2020-03-10 03:53] LABS: ALBUMIN 3.1 g/dL (3.5-5.0); BILIRUBIN,TOTAL 0.6 mg/dL (0.2-1.0); CREATININE 0.9 mg/dL (0.5-1.5); MAGNESIUM 1.9 mg/dL (1.80-2.40); POTASSIUM 3.7 mmol/L (3.5-5.1); TOTAL PROTEIN, SERUM 7.8 g/dL (6.0-8.3)
[2020-03-10] MEDS: MAGNESIUM 2GM PREMIX 50ML 50 ML IV PRN (04:37)
[2020-03-10] MEDS: CEFTRIAXONE SODIUM 1 GM IV SCH (04:37)
[2020-03-10] MEDS: POTASSIUM CHLORIDE 10% ELIXIR 20 MEQ/15 ML UDCUP PO PRN (04:37)
[2020-03-10] MEDS: INSULIN HUMULIN R 100 UNIT/ML 3ML SQ SCH ×4 (06:14→20:56)
[2020-03-10] MEDS: CHLORHEXIDINE GLUCONATE 473 ML MOUTHWASH MM SCH ×2 (09:00→19:49)
[2020-03-10] MEDS ORDERED: COMPOUND IV MISC 1 EACH IVSOLN MISC PRN (09:45)
[2020-03-10] MEDS: THIAMINE HCL 100 MG, FOLIC ACID 1 MG, M.V.I. IV [ADULT] 10 ML in SODIUM CHLORIDE 0.9% 1... IV SCH (09:45)
[2020-03-10] MEDS ORDERED: THIAMINE HCL 100 MG in SODIUM CHLORIDE 0.9% 50 ML IM SCH (10:30)
[2020-03-10] MEDS: FAMOTIDINE/PF 20 MG/2 ML VIAL IV SCH ×2 (11:30→19:47)
[2020-03-10] MEDS: THIAMINE HCL 100 MG/ML 2ML VIAL IVP SCH (11:30)
[2020-03-10] MEDS: LEVETIRACETAM 500 MG in SODIUM CHLORIDE 0.9% 100 ML IV SCH ×2 (12:33→22:30)
[2020-03-10] MEDS: DEXMEDETOMIDINE HCL 400 MCG in SODIUM CHLORIDE 0.9% 100 ML IV SCH ×2 (15:19→20:10)
[2020-03-10 16:06] LABS: AMPHET/METH SCREEN,URINE NEGATIVE (NEGATIVE); BARBITURATE SCREEN, URINE NEGATIVE (NEGATIVE); BENZODIAZEPINES SCREEN,URINE POSITIVE (NEGATIVE); CANNABINOID SCREEN,URINE NEGATIVE (NEGATIVE); COCAINE SCREEN,URINE NEGATIVE (NEGATIVE); OPIATE SCREEN,URINE NEGATIVE (NEGATIVE); PHENCYCLIDINE SCREEN,URINE NEGATIVE (NEGATIVE)
[2020-03-10] MEDS: ENOXAPARIN SODIUM 40 MG/0.4 ML SYRINGE SQ SCH (16:11)
[2020-03-10] MEDS ORDERED: PHARMACY COMMUNICATION MISC PRN (16:30)
--- NOTE | 2020-03-10 16:33 | NUR ---
RDSCREEN - NPO X 4 DAYS Pt admitted for Drug overdose with hypoxic respiratory failure. Pt is currently intubated, was unresponsive after suicide attempt. NPO x 4 days. Overweight status. OGT in place, not receiving tube feedings at this time. MVI, Albuterol, MgSO4, KCl, Rocephin medications/supplementation in place. Unknown LBM. Pending possible weaning trials. Recommend alternate means nutrition if NPO >[address] to continue to monitor. Please notify as additional nutrition concerns arise. Thank you. Addendum: 03/10/20 at [address] Amended: Links added.
[2020-03-10] MEDS: FOLIC ACID 1 MG TABLET PO SCH (19:49)
[2020-03-10] MEDS: CHLORDIAZEPOXIDE HCL 25 MG CAP PO PRN ×2 (19:50→22:49)
[2020-03-10] MEDS ORDERED: HYDRALAZINE HCL 20 MG/ML VIAL IV PRN (22:15)
[2020-03-11] VITALS (22 sets, daily range): BP systolic 118–178; BP diastolic 49–94
[2020-03-11] MEDS: LORAZEPAM 2 MG/ML 1 ML VIAL IVP PRN ×3 (00:23→11:10)
[2020-03-11] MEDS ORDERED: HYDRALAZINE HCL 10 MG TABLET ONE ×2 (00:46→06:21)
[2020-03-11] MEDS: CHLORDIAZEPOXIDE HCL 25 MG CAP PO PRN ×3 (02:35→11:10)
[2020-03-11] MEDS: DEXMEDETOMIDINE HCL 400 MCG in SODIUM CHLORIDE 0.9% 100 ML IV SCH (02:35)
[2020-03-11 03:43] LABS: BASOPHILS % (AUTO) 0.3 % (0.0-5.0); EOSINOPHILS % (AUTO) 3.1 % (0.0-8.0); HEMATOCRIT 43.2 % (42-54); LYMPHOCYTES % (AUTO) 12.9 % (21.0-51.0); MEAN CORPUSCULAR HEMOGLOBIN 31.2 pg (27.0-33.0); MEAN CORPUSCULAR HGB CONC 33.1 g/dL (32.0-36.0); MEAN CORPUSCULAR VOLUME 94.1 fL (79-99); MONOCYTES % (AUTO) 10.6 % (3.0-13.0); NEUTROPHILS % (AUTO) 72.6 % (40.0-77.0); PLATELET COUNT (AUTO) 146 K/uL (130-400); RED BLOOD CELL COUNT(AUTO) 4.59 MIL/uL (4.50-6.20); RED CELL DISTRIBUTION WIDTH 13.1 % (11.0-15.5); WHITE BLOOD COUNT (AUTO) 7.8 K/uL (4.8-10.8)
[2020-03-11 04:04] LABS: ALANINE AMINOTRANSFERASE 23 U/L (12-78); ASPARTATE AMINOTRANSFERASE 34 U/L (10-37); BILIRUBIN,TOTAL 0.7 mg/dL (0.2-1.0); CARBON DIOXIDE 21 mmol/L (21-32); CHLORIDE 99 mmol/L (101-111); CREATININE 0.9 mg/dL (0.5-1.5); GLOMERULAR FILTR. RATE CALC 88 mL/min (>60); GLUCOSE,RANDOM 98 mg/dL (70-105); SODIUM SERUM 134 mmol/L (136-145); TOTAL PROTEIN, SERUM 7.5 g/dL (6.0-8.3); UREA NITROGEN, BLOOD 10 mg/dL (7-18)
[2020-03-11 04:05] LABS: AMMONIA < 10 umol/L (11-32)
[2020-03-11 04:12] LABS: B-TYPE NATRIURETIC PEPTIDE 228 pg/mL (0-100)
[2020-03-11] MEDS: CEFTRIAXONE SODIUM 1 GM IV SCH (04:38)
[2020-03-11] MEDS: ALBUTEROL SULFATE 0.083% 2.5 MG/3 ML INH IH SCH ×3 (06:31→18:53)
[2020-03-11 07:18] LABS: ABG BASE EXCESS -3.2 mmol/L (-2.0-3.0); ABG HCO3 19.9 mmol/L (21.0-28.0); ABG OXYGEN SATURATION 97.4 % (95.0-99.0); ABG PCO2 31 mmHg (35-48)
[2020-03-11] MEDS: INSULIN HUMULIN R 100 UNIT/ML 3ML SQ SCH ×4 (07:30→20:36)
[2020-03-11] MEDS: FAMOTIDINE/PF 20 MG/2 ML VIAL IV SCH ×2 (08:55→20:36)
[2020-03-11] MEDS: FOLIC ACID 1 MG TABLET PO SCH ×2 (08:55→20:36)
[2020-03-11] MEDS: MULTIVITAMIN TABLET PO SCH (08:55)
[2020-03-11] MEDS: THIAMINE HCL 100 MG/ML 2ML VIAL IVP SCH (08:56)
[2020-03-11] MEDS: ENOXAPARIN SODIUM 40 MG/0.4 ML SYRINGE SQ SCH (08:57)
[2020-03-11] MEDS: CHLORHEXIDINE GLUCONATE 473 ML MOUTHWASH MM SCH ×2 (08:58→20:36)
[2020-03-11] MEDS: LEVETIRACETAM 500 MG in SODIUM CHLORIDE 0.9% 100 ML IV SCH ×2 (10:49→22:52)
[2020-03-11] MEDS: LISINOPRIL 20 MG TABLET PO SCH (11:11)
--- NOTE | 2020-03-11 13:25 | NUR ---
BELONGINGS GIVEN TO DAUGHTER DAUGHTER LOC AT BEDSIDE. BELONGINGS WHICH INCLUDED PHONE, WATCH, MEDS AND CLOTHES WERE GIVEN TO DAUGHTER TO TAKE HOME. DOCTORS HAVE NOT ROUNDED AT THIS TIME AT BEDSIDE. WILL DISCUSS PLAN OF EXTUBATION UPON ROUNDING.
[2020-03-11] MEDS ORDERED: PHARMACY COMMUNICATION MISC SCH (17:00)
[2020-03-11] MEDS: DEXTROSE 5 %-0.45 % NACL 1,000 ML IV SCH (17:45)
[2020-03-12] VITALS (26 sets, daily range): BP systolic 113–179; BP diastolic 55–97
[2020-03-12] MEDS: ALBUTEROL SULFATE 0.083% 2.5 MG/3 ML INH IH SCH ×4 (01:24→19:37)
[2020-03-12 03:58] LABS: CREATININE 1.2 mg/dL (0.5-1.5); MAGNESIUM 1.9 mg/dL (1.80-2.40); POTASSIUM 3.7 mmol/L (3.5-5.1)
[2020-03-12] MEDS: CEFTRIAXONE SODIUM 1 GM IV SCH (06:07)
[2020-03-12] MEDS: INSULIN HUMULIN R 100 UNIT/ML 3ML SQ SCH ×4 (06:07→21:00)
[2020-03-12 07:41] LABS: ABG BASE EXCESS -3.4 mmol/L (-2.0-3.0); ABG HCO3 21.7 mmol/L (21.0-28.0); ABG OXYGEN SATURATION 96.6 % (95.0-99.0); ABG PCO2 40 mmHg (35-48)
[2020-03-12] MEDS: ENOXAPARIN SODIUM 40 MG/0.4 ML SYRINGE SQ SCH (08:37)
[2020-03-12] MEDS: FAMOTIDINE/PF 20 MG/2 ML VIAL IV SCH ×2 (08:38→21:07)
[2020-03-12] MEDS: MULTIVITAMIN TABLET PO SCH (08:38)
[2020-03-12] MEDS: FOLIC ACID 1 MG TABLET PO SCH ×2 (08:38→21:00)
[2020-03-12] MEDS: THIAMINE HCL 100 MG/ML 2ML VIAL IVP SCH (08:38)
[2020-03-12] MEDS: LISINOPRIL 20 MG TABLET PO SCH (08:39)
[2020-03-12] MEDS: LORAZEPAM 2 MG/ML 1 ML VIAL IVP PRN ×2 (08:47→11:51)
[2020-03-12] MEDS: MAGNESIUM 2GM PREMIX 50ML 50 ML IV PRN (08:49)
[2020-03-12] MEDS: DEXTROSE 5 %-0.45 % NACL 1,000 ML IV SCH (09:19)
[2020-03-12] MEDS: LEVETIRACETAM 500 MG in SODIUM CHLORIDE 0.9% 100 ML IV SCH (09:51)
[2020-03-12] MEDS ORDERED: PRAZOSIN 1 MG PO PRN (10:15)
--- NOTE | 2020-03-12 10:30 | NUR ---
Dr Vergara at bedside to assess patient, new orders given.
--- NOTE | 2020-03-12 11:00 | NUR ---
HOLD EVALUATION. EVALUATION ORDER RECEIVED. DOOR PERSON COORDINATED WITH NURSE MARTE. Pt CURRENTLY RESTLESS AND AGITATED AT THIS TIME. NOT ABLE TO FOLLOW COMMANDS. DOOR PERSON WILL CONTINUE TO FOLLOW Pt. EVALUATION TO BE RE-ATTEMPTED TOMORROW. Addendum: 03/12/20 at 1510 by PIETRO GUZMAN, [facility] Amended: Links added.
[2020-03-12] MEDS ORDERED: FUROSEMIDE 10 MG/ML 10ML VIAL IVP SCH (12:00)
[2020-03-12] MEDS: DEXMEDETOMIDINE HCL 400 MCG in SODIUM CHLORIDE 0.9% 100 ML IV SCH ×2 (13:03→17:54)
--- NOTE | 2020-03-12 13:35 | NUR ---
HENRY Jewell at bedside to assess patient, new orders given
--- NOTE | 2020-03-12 14:20 | NUR ---
Dr Llanos at bedside to assess patient.
[2020-03-12] MEDS: ZOSYN 3.375GM+NS 50ML 50 ML IV SCH ×2 (14:32→22:34)
--- NOTE | 2020-03-12 15:40 | NUR ---
Dr Rosario at bedside to assess patient, new orders given
--- NOTE | 2020-03-12 17:00 | NUR ---
Patient's daughter at bedside, Fanny, updated on patient's status
[2020-03-12] MEDS: PHARMACY COMMUNICATION MISC SCH ×3 (19:45→23:45)
[2020-03-12] MEDS: LEVETIRACETAM 750 MG in SODIUM CHLORIDE 0.9% 100 ML IV SCH (22:34)
[2020-03-13] VITALS (24 sets, daily range): BP systolic 117–155; BP diastolic 53–88
[2020-03-13] MEDS: ALBUTEROL SULFATE 0.083% 2.5 MG/3 ML INH IH SCH ×5 (00:31→23:42)
[2020-03-13 03:46] LABS: BASOPHILS % (AUTO) 0.4 % (0.0-5.0); HEMATOCRIT 42.1 % (42-54); LYMPHOCYTES % (AUTO) 6.3 % (21.0-51.0); MEAN CORPUSCULAR HEMOGLOBIN 31.2 pg (27.0-33.0); MEAN CORPUSCULAR VOLUME 94.6 fL (79-99); MONOCYTES % (AUTO) 8.4 % (3.0-13.0); NEUTROPHILS % (AUTO) 83.1 % (40.0-77.0); PLATELET COUNT (AUTO) 191 K/uL (130-400); RED BLOOD CELL COUNT(AUTO) 4.45 MIL/uL (4.50-6.20); RED CELL DISTRIBUTION WIDTH 13.2 % (11.0-15.5); WHITE BLOOD COUNT (AUTO) 12.5 K/uL (4.8-10.8)
[2020-03-13 04:02] LABS: BILIRUBIN,DIRECT 0.3 mg/dL (0.0-0.3); BILIRUBIN,TOTAL 0.6 mg/dL (0.2-1.0); CREATININE 1.2 mg/dL (0.5-1.5); MAGNESIUM 2.3 mg/dL (1.80-2.40); POTASSIUM 3.2 mmol/L (3.5-5.1); THYROID STIMULATING HORMONE 0.17 uIU/mL (0.36-3.74)
[2020-03-13 04:14] LABS: B-TYPE NATRIURETIC PEPTIDE 303 pg/mL (0-100)
[2020-03-13] MEDS: PHARMACY COMMUNICATION MISC SCH (05:45)
[2020-03-13] MEDS: ZOSYN 3.375GM+NS 50ML 50 ML IV SCH ×3 (06:15→22:09)
[2020-03-13] MEDS: INSULIN HUMULIN R 100 UNIT/ML 3ML SQ SCH ×4 (07:30→21:00)
[2020-03-13] MEDS: DEXMEDETOMIDINE HCL 400 MCG in SODIUM CHLORIDE 0.9% 100 ML IV SCH (08:00)
[2020-03-13] MEDS: FAMOTIDINE/PF 20 MG/2 ML VIAL IV SCH ×2 (08:55→22:09)
[2020-03-13] MEDS: ENOXAPARIN SODIUM 40 MG/0.4 ML SYRINGE SQ SCH (08:56)
[2020-03-13] MEDS ORDERED: THIAMINE HCL 100 MG TABLET PO SCH (09:00)
[2020-03-13] MEDS ORDERED: DEXMEDETOMIDINE HCL 1,000 MCG in SODIUM CHLORIDE 0.9% 250 ML IV SCH (09:00)
[2020-03-13] MEDS: MULTIVITAMIN TABLET PO SCH (09:31)
[2020-03-13] MEDS: LISINOPRIL 20 MG TABLET PO SCH (09:31)
[2020-03-13] MEDS: LEVETIRACETAM 750 MG in SODIUM CHLORIDE 0.9% 100 ML IV SCH ×2 (09:32→22:21)
[2020-03-13] MEDS: FOLIC ACID 1 MG TABLET PO SCH ×2 (09:32→21:00)
[2020-03-13] MEDS: POTASSIUM CHLORIDE 10% ELIXIR 20 MEQ/15 ML UDCUP PO PRN ×3 (09:58→15:29)
--- NOTE | 2020-03-13 11:00 | NUR ---
HOLD EVALUATION. DOUGH CUTTING MACHINE OPERATOR COORDINATED WITH NURSE MARTE. Pt CURRENTLY ON VENTI MASK, RESTLESS WITH NG TUBE IN PLACE. Pt NOT ABLE TO PARTICIPATE IN P.O. TRIALS AT THIS TIME. Pt IS HIGH RISK FOR ASPIRATION. RECOMMEND CONTINUED NPO WITH NG TUBE FEEDINGS. DOUGH CUTTING MACHINE OPERATOR WILL CONTINUE TO FOLLOW Pt. EVALUATION TO BE COMPLETED WHEN Pt IS ABLE TO PARTICIPATE. RECOMMENDATIONS PROVIDED TO NURSE MARTE. Addendum: 03/13/20 at 1425 by [facility] Amended: Links added.
--- NOTE | 2020-03-13 12:00 | NUR ---
RESPIRATORY STATUS NATANAEL PENALOZA PRESENT AT BEDSIDE. STAT ABG'S ORDERED AND PATIENT TO BE PLACED ON BIPAP. WILL CONTINUE TO ASSESS AND MONITOR FOR ABNORMALS
[2020-03-13 12:29] LABS: ABG BASE EXCESS -0.8 mmol/L (-2.0-3.0); ABG HCO3 25.1 mmol/L (21.0-28.0); ABG OXYGEN SATURATION 93.5 % (95.0-99.0); ABG PCO2 46 mmHg (35-48)
--- NOTE | 2020-03-13 14:12 | NUR ---
DC PLAN PATIENT CONDITION GUARDED. SPOKE TO NATANAEL CODY NP. GAVE HER DAUGHTER NUMBER MIGUEL CALLAHAN [phone]. PATIENT ON 1:1. Addendum: 03/13/20 at 1418 by JERILYN HIRSCH RN CM Amended: Links added.
--- NOTE | 2020-03-13 15:40 | NUR ---
RD FOLLOW UP Pt seen by Speech Therapy, High risk aspiration, NGT feeding recommended. Recommend initiate continuous tube feeding, Jevity 1.5 @20mls/hr. Goal rate 55mls/hr. Recommend flushes at 130 [id number]. Recommendations faxed to [place], RN notified. Recommend continue MVI supplementation with Thiamine, Folic Acid. RD to continue to monitor. Please notify as additional nutrition concerns arise. Thank you.
[2020-03-13] MEDS ORDERED: LORAZEPAM 2 MG/ML 1 ML VIAL IVP PRN (18:30)
--- NOTE | 2020-03-13 20:45 | NUR ---
ASSESSMENT RECEIVED CARE OF THE PATIENT AT THIS TIME. PATIENT HAS A 1:1 SITTER AT THE BEDSIDE. BILATERAL HAND MITTENS IN PLACE. BILATERAL WAFFLE BOOTS ON THE PATIENT AT THIS TIME. BED ALARM ON. PATIENT ON BIPAP. SUCTIONED NEEDED. IV'S LEAKING. DISCONTINUED.
--- NOTE | 2020-03-13 21:00 | NUR ---
Family Update Both daughters called into the unit to see how the patient was doing. Update given to them. They both stated that they wanted to speak with the Case Manger in the morning to get an update on the patient and the plan for discharge.
[2020-03-14] VITALS (19 sets, daily range): BP systolic 112–165; BP diastolic 51–92
[2020-03-14] MEDS: FUROSEMIDE 10 MG/ML 2ML VIAL IV SCH ×3 (01:47→21:16)
[2020-03-14 03:55] LABS: HEMATOCRIT 44.7 % (42-54); MEAN CORPUSCULAR HEMOGLOBIN 31.3 pg (27.0-33.0); MEAN CORPUSCULAR HGB CONC 32.7 g/dL (32.0-36.0); MEAN CORPUSCULAR VOLUME 95.7 fL (79-99); RED BLOOD CELL COUNT(AUTO) 4.67 MIL/uL (4.50-6.20); RED CELL DISTRIBUTION WIDTH 13.6 % (11.0-15.5); WHITE BLOOD COUNT (AUTO) 13.2 K/uL (4.8-10.8)
[2020-03-14 04:16] LABS: ALBUMIN 2.8 g/dL (3.5-5.0); BILIRUBIN,TOTAL 0.5 mg/dL (0.2-1.0); CREATININE 1.2 mg/dL (0.5-1.5); PHOSPHORUS 1.9 mg/dL (2.5-4.9); POTASSIUM 3.2 mmol/L (3.5-5.1); TOTAL PROTEIN, SERUM 7.8 g/dL (6.0-8.3)
[2020-03-14] MEDS: ZOSYN 3.375GM+NS 50ML 50 ML IV SCH ×3 (05:01→21:11)
[2020-03-14] MEDS: POTASSIUM CHLORIDE 10% ELIXIR 20 MEQ/15 ML UDCUP PO PRN ×3 (05:02→23:36)
[2020-03-14] MEDS: ALBUTEROL SULFATE 0.083% 2.5 MG/3 ML INH IH SCH ×4 (06:11→23:03)
[2020-03-14] MEDS: INSULIN HUMULIN R 100 UNIT/ML 3ML SQ SCH ×4 (07:30→21:00)
[2020-03-14] MEDS ORDERED: THIAMINE HCL 100 MG/ML 2ML VIAL IVP SCH (07:30)
[2020-03-14] MEDS: FAMOTIDINE/PF 20 MG/2 ML VIAL IV SCH ×2 (09:42→21:09)
[2020-03-14] MEDS: ENOXAPARIN SODIUM 40 MG/0.4 ML SYRINGE SQ SCH (09:42)
[2020-03-14] MEDS: LISINOPRIL 20 MG TABLET PO SCH (09:42)
[2020-03-14] MEDS: LEVETIRACETAM 750 MG in SODIUM CHLORIDE 0.9% 100 ML IV SCH ×2 (09:43→21:12)
[2020-03-14] MEDS: CHLORHEXIDINE GLUCONATE 473 ML MOUTHWASH MM SCH ×4 (09:51→21:00)
[2020-03-14] MEDS: MULTIVITAMIN TABLET PO SCH (09:51)
[2020-03-14] MEDS: FOLIC ACID 1 MG TABLET PO SCH ×2 (09:51→21:11)
[2020-03-14] MEDS ORDERED: POTASSIUM PHOS 15 mMOL+NS250ML 250 ML IV PRN (11:00)
[2020-03-14] MEDS: ACETAMINOPHEN 325 MG TAB PO PRN (12:24)
--- NOTE | 2020-03-14 13:08 | NUR ---
CM NOTE Spoke to daughter Fanny Corley, and discussed orders for [facility] level of care. for respiratory care and IV antibiotic therapy. informed on process, and that I discusse plan of care with GAUGE MAKER APPRENTICE Yael Lombardi, today, and GAUGE MAKER APPRENTICE has also spoken to Fanny with a patient update. daughter verbalizes understanding and in agreement for referral. choice letter obtained.
[2020-03-14] MEDS: CHLORDIAZEPOXIDE HCL 25 MG CAP PO PRN ×2 (13:32→21:19)
[2020-03-14] MEDS: LORAZEPAM 2 MG/ML 1 ML VIAL IVP PRN (14:34)
[2020-03-15] VITALS (24 sets, daily range): BP systolic 92–168; BP diastolic 55–92
[2020-03-15] MEDS: LORAZEPAM 2 MG/ML 1 ML VIAL IVP PRN ×3 (00:30→14:08)
[2020-03-15 04:00] LABS: HEMATOCRIT 46.2 % (42-54); MEAN CORPUSCULAR HEMOGLOBIN 31.5 pg (27.0-33.0); MEAN CORPUSCULAR HGB CONC 32.5 g/dL (32.0-36.0); MEAN CORPUSCULAR VOLUME 97.1 fL (79-99); RED BLOOD CELL COUNT(AUTO) 4.76 MIL/uL (4.50-6.20); RED CELL DISTRIBUTION WIDTH 13.7 % (11.0-15.5); WHITE BLOOD COUNT (AUTO) 17.2 K/uL (4.8-10.8)
[2020-03-15 04:10] LABS: CREATININE 1.7 mg/dL (0.5-1.5); POTASSIUM 3.6 mmol/L (3.5-5.1)
[2020-03-15] MEDS: ZOSYN 3.375GM+NS 50ML 50 ML IV SCH ×3 (05:41→21:43)
[2020-03-15] MEDS: INSULIN HUMULIN R 100 UNIT/ML 3ML SQ SCH ×4 (05:42→20:51)
[2020-03-15] MEDS: ALBUTEROL SULFATE 0.083% 2.5 MG/3 ML INH IH SCH ×4 (06:26→23:17)
[2020-03-15] MEDS ORDERED: VANCOMYCIN 1GM+NS 250ML 250 ML IV SCH ×2 (08:30→10:15)
[2020-03-15] MEDS: LISINOPRIL 20 MG TABLET PO SCH (09:36)
[2020-03-15] MEDS: CHLORDIAZEPOXIDE HCL 25 MG CAP PO PRN (09:36)
[2020-03-15] MEDS: FAMOTIDINE/PF 20 MG/2 ML VIAL IV SCH ×2 (09:37→21:43)
[2020-03-15] MEDS: ACETAMINOPHEN 325 MG TAB PO PRN ×2 (09:37→14:07)
[2020-03-15] MEDS: POTASSIUM CHLORIDE 10% ELIXIR 20 MEQ/15 ML UDCUP PO PRN ×2 (09:37→10:39)
[2020-03-15] MEDS: THIAMINE HCL 100 MG/ML 2ML VIAL IVP SCH (09:38)
[2020-03-15] MEDS: MULTIVITAMIN TABLET PO SCH (09:38)
[2020-03-15] MEDS: LEVOFLOXACIN 500 MG/D5W 100 ML 100 ML IV SCH (09:38)
[2020-03-15] MEDS: FOLIC ACID 1 MG TABLET PO SCH ×2 (09:38→21:43)
[2020-03-15] MEDS: ENOXAPARIN SODIUM 40 MG/0.4 ML SYRINGE SQ SCH (09:39)
[2020-03-15] MEDS: CHLORHEXIDINE GLUCONATE 473 ML MOUTHWASH MM SCH ×4 (09:39→21:46)
[2020-03-15] MEDS: DEXTROSE 5%-WATER 1,000 ML IV SCH (09:41)
[2020-03-15] MEDS ORDERED: SODIUM CHLORIDE 0.9% 500ML 500 ML IV ONE (09:44)
[2020-03-15] MEDS: LEVETIRACETAM 750 MG in SODIUM CHLORIDE 0.9% 100 ML IV SCH ×2 (09:44→21:43)
[2020-03-15] MEDS ORDERED: COMPOUND IV REFRIGERATED 1 EACH IVSOLN MISC PRN (13:15)
[2020-03-15] MEDS ORDERED: VANCOMYCIN 1.5 GM in SODIUM CHLORIDE 0.9% 250 ML IV ONE (14:00)
[2020-03-15] MEDS ORDERED: VANCOMYCIN 500MG+NS 100ML 100 ML IV ONE (15:00)
[2020-03-15] MEDS: ACETYLCYSTEINE 20% 200MG/ML 4ML VIAL IH SCH ×2 (18:33→23:17)
--- NOTE | 2020-03-15 20:02 | NUR ---
CM NOTE referral faxed to [facility], pending evaluation.
[2020-03-15] MEDS: METOPROLOL TARTRATE 25 MG TAB PO SCH (21:43)
[2020-03-16] VITALS (23 sets, daily range): BP systolic 126–170; BP diastolic 59–101
[2020-03-16] MEDS: DEXTROSE 5%-WATER 1,000 ML IV SCH ×2 (03:02→16:08)
[2020-03-16] MEDS: INSULIN HUMULIN R 100 UNIT/ML 3ML SQ SCH ×4 (05:34→21:00)
[2020-03-16] MEDS: ZOSYN 3.375GM+NS 50ML 50 ML IV SCH ×3 (05:34→21:50)
[2020-03-16] MEDS: VANCOMYCIN 500MG+NS 100ML 100 ML IV SCH ×2 (06:31→16:08)
[2020-03-16] MEDS: ACETYLCYSTEINE 20% 200MG/ML 4ML VIAL IH SCH ×3 (06:32→19:09)
[2020-03-16] MEDS: ALBUTEROL SULFATE 0.083% 2.5 MG/3 ML INH IH SCH ×3 (06:32→19:09)
[2020-03-16] MEDS: FOLIC ACID 1 MG TABLET PO SCH ×2 (08:04→20:24)
[2020-03-16] MEDS: MULTIVITAMIN TABLET PO SCH (08:04)
[2020-03-16] MEDS: METOPROLOL TARTRATE 25 MG TAB PO SCH ×2 (08:04→20:24)
[2020-03-16] MEDS: ENOXAPARIN SODIUM 40 MG/0.4 ML SYRINGE SQ SCH (08:04)
[2020-03-16] MEDS: FAMOTIDINE/PF 20 MG/2 ML VIAL IV SCH ×2 (08:04→20:24)
[2020-03-16] MEDS: LEVOFLOXACIN 500 MG/D5W 100 ML 100 ML IV SCH (08:05)
[2020-03-16] MEDS: THIAMINE HCL 100 MG/ML 2ML VIAL IVP SCH (08:05)
[2020-03-16] MEDS: LISINOPRIL 20 MG TABLET PO SCH (08:07)
[2020-03-16] MEDS: CHLORHEXIDINE GLUCONATE 473 ML MOUTHWASH MM SCH ×4 (08:39→20:25)
--- NOTE | 2020-03-16 09:25 | NUR ---
FOLLOW UP COMPLETED. Pt ON BIPAP AT THIS TIME, HIGH RISK FOR ASPIRATION. HOLD EVALUATION. CEREAL SUPERVISOR WILL CONTINUE TO FOLLOW Pt. Addendum: 03/16/20 at 0928 by PIETRO GUZMAN, SPT ST Amended: Links added.
[2020-03-16] MEDS: LEVETIRACETAM 750 MG in SODIUM CHLORIDE 0.9% 100 ML IV SCH ×2 (09:50→21:50)
[2020-03-16 16:38] LABS: CREATININE 1.1 mg/dL (0.5-1.5); POTASSIUM 3.8 mmol/L (3.5-5.1)
[2020-03-16] MEDS ORDERED: IOHEXOL-350 75 ML VIAL IV ONE (18:28)
[2020-03-17] VITALS (23 sets, daily range): BP systolic 106–171; BP diastolic 47–107
[2020-03-17] MEDS: DEXTROSE 5%-WATER 1,000 ML IV SCH ×2 (00:15→07:33)
[2020-03-17] MEDS: ALBUTEROL SULFATE 0.083% 2.5 MG/3 ML INH IH SCH ×4 (00:54→19:04)
[2020-03-17] MEDS: ACETYLCYSTEINE 20% 200MG/ML 4ML VIAL IH SCH ×4 (00:54→19:04)
[2020-03-17] MEDS: INSULIN HUMULIN R 100 UNIT/ML 3ML SQ SCH ×4 (05:10→23:09)
[2020-03-17 05:27] LABS: BASOPHILS % (AUTO) 0.3 % (0.0-5.0); EOSINOPHILS % (AUTO) 1.8 % (0.0-8.0); HEMATOCRIT 42.8 % (42-54); LYMPHOCYTES % (AUTO) 11.1 % (21.0-51.0); MEAN CORPUSCULAR HGB CONC 31.8 g/dL (32.0-36.0); MEAN CORPUSCULAR VOLUME 97.5 fL (79-99); MONOCYTES % (AUTO) 5.4 % (3.0-13.0); NEUTROPHILS % (AUTO) 80.3 % (40.0-77.0); PLATELET COUNT (AUTO) 228 K/uL (130-400); RED BLOOD CELL COUNT(AUTO) 4.39 MIL/uL (4.50-6.20); RED CELL DISTRIBUTION WIDTH 13.9 % (11.0-15.5); WHITE BLOOD COUNT (AUTO) 15.8 K/uL (4.8-10.8)
[2020-03-17 05:45] LABS: ALBUMIN 2.1 g/dL (3.5-5.0); BILIRUBIN,TOTAL 0.3 mg/dL (0.2-1.0); CREATININE 1.1 mg/dL (0.5-1.5); MAGNESIUM 3.2 mg/dL (1.80-2.40); POTASSIUM 3.6 mmol/L (3.5-5.1); TOTAL PROTEIN, SERUM 6.6 g/dL (6.0-8.3)
[2020-03-17] MEDS: ZOSYN 3.375GM+NS 50ML 50 ML IV SCH ×3 (05:47→23:06)
[2020-03-17] MEDS: VANCOMYCIN 500MG+NS 100ML 100 ML IV SCH ×2 (05:55→23:07)
[2020-03-17] MEDS: LEVOFLOXACIN 500 MG/D5W 100 ML 100 ML IV SCH (07:32)
[2020-03-17] MEDS: ENOXAPARIN SODIUM 40 MG/0.4 ML SYRINGE SQ SCH (08:05)
[2020-03-17] MEDS: LISINOPRIL 20 MG TABLET PO SCH (08:05)
[2020-03-17] MEDS: FOLIC ACID 1 MG TABLET PO SCH ×2 (08:05→23:06)
[2020-03-17] MEDS: MULTIVITAMIN TABLET PO SCH (08:06)
[2020-03-17] MEDS: METOPROLOL TARTRATE 25 MG TAB PO SCH ×2 (08:06→23:06)
[2020-03-17] MEDS: THIAMINE HCL 100 MG/ML 2ML VIAL IVP SCH (08:06)
[2020-03-17] MEDS: FAMOTIDINE/PF 20 MG/2 ML VIAL IV SCH ×2 (08:06→23:18)
[2020-03-17] MEDS: CHLORHEXIDINE GLUCONATE 473 ML MOUTHWASH MM SCH ×4 (08:07→23:09)
[2020-03-17] MEDS: LEVETIRACETAM 750 MG in SODIUM CHLORIDE 0.9% 100 ML IV SCH ×2 (09:30→23:08)
[2020-03-17 11:36] LABS: APPEARANCE,URINE CLOUDY (CLEAR); BILIRUBIN,URINE NEGATIVE (NEGATIVE); COLOR,URINE YELLOW (YELLOW); GLUCOSE, URINE (UA) NEGATIVE (NEGATIVE); KETONES,URINE NEGATIVE (NEGATIVE); LEUKOCYTE ESTERASE ,URINE NEGATIVE (NEGATIVE); NITRATE,URINE NEGATIVE (NEGATIVE); OCCULT BLOOD,URINE LARGE (NEGATIVE); PROTEIN,URINE 30 mg/dL (NEGATIVE); UROBILINOGEN,URINE 0.2 mg/dL (0.2-1.0)
[2020-03-17] MEDS ORDERED: VANCOMYCIN 500MG+NS 100ML 100 ML IV SCH (12:00)
[2020-03-17 12:09] LABS: BACTERIA,URINE Few /HPF (None Seen); RBC,URINE TNTC /HPF (0-1); WBC,URINE 0-1 /HPF (0-1)
[2020-03-17 12:10] LABS: SQUAMOUS EPITHELIAL CELL,UR 0-2 /HPF (0-2); URIC ACID CRYSTALS,URINE Many /LPF (None Seen)
[2020-03-17] MEDS: POTASSIUM CHLORIDE 10% ELIXIR 20 MEQ/15 ML UDCUP PO PRN ×2 (12:14→16:44)
--- NOTE | 2020-03-17 15:50 | NUR ---
FOLLOW UP COMPLETED. Pt NOT FOLLOWING COMMANDS AT THIS TIME, AGGLORIE. Pt CURRENTLY ON BIPAP. HONING MACHINE SET UP OPERATOR COORDINATED WITH NURSE MARTE. POSSIBLE LONG-TERM ALTERNATE MEANS OF NUTRITION/HYDRATION . HONING MACHINE SET UP OPERATOR WILL CONTINUE TO FOLLOW Pt. Addendum: 03/17/20 at 1603 by PIETRO GUZMAN, SPT ST Amended: Links added.
--- NOTE | 2020-03-17 16:32 | NUR ---
RD FOLLOW UP Pt with Bolus tube feedings, 5 cans Jevity 1.5 per day. Tube feeding meeting Pt's protein and fluid needs. IV dextrose in place at 75mls/hr. Yellow gastric drainage as per EMR. LBM 03/16, diarrhea/loose stools reported. Soft, nontender abdomen, mild distention. Monitored labs: WBC 15.8, Na 146, BUN 22, BG 117, Mg 3.20, Alb 2.1. No vomiting or tube feeding residual. RD to continue to monitor nutritional status. Please notify as concerns arise. Addendum: 03/17/20 at [address] Amended: Links added.
--- NOTE | 2020-03-17 16:46 | NUR ---
STACIA ERVIN SPOKE TO FELICITY FROM [facility]. SAID THEY NEED DR. DUNAWAY TO CLEAR PATIENT. DR. DUNAWAY CAN NOT CLEAR PATIENT UNTIL PATIENT IS MORE LUCID. TODAY PATIENT APPEARED AGITATED. STILL ON A 2:1. Addendum: 03/17/20 at 1648 by JERILYN HIRSCH RN CM Amended: Links added.
--- NOTE | 2020-03-17 17:15 | NUR ---
SECURITY PATIENT WITH VISITOR AT BEDSIDE. NURSE NOTED EMPTY BOTTLE OF MEDICATION, LABELED "FARMAPRAM" MANUFACTURED IN [place] ALPRAZOLAM 2.0MG. NURSE CALLED SECURITY TO HOLD THIS BELONGING
[2020-03-17] MEDS ORDERED: GUAIFENESIN-DM 200/20 MG 10 ML ONE (17:18)
[2020-03-17] MEDS: GUAIFENESIN-DM 200/20 MG 10 ML PO SCH ×2 (17:27→23:11)
[2020-03-18] VITALS (24 sets, daily range): BP systolic 123–172; BP diastolic 57–83
[2020-03-18] MEDS: DEXTROSE 5%-WATER 1,000 ML IV SCH (00:46)
[2020-03-18 03:51] LABS: BASOPHILS % (AUTO) 0.3 % (0.0-5.0); EOSINOPHILS % (AUTO) 1.7 % (0.0-8.0); HEMATOCRIT 40.1 % (42-54); LYMPHOCYTES % (AUTO) 9.4 % (21.0-51.0); MEAN CORPUSCULAR HEMOGLOBIN 31.1 pg (27.0-33.0); MEAN CORPUSCULAR HGB CONC 31.7 g/dL (32.0-36.0); MONOCYTES % (AUTO) 4.9 % (3.0-13.0); NEUTROPHILS % (AUTO) 82.5 % (40.0-77.0); PLATELET COUNT (AUTO) 198 K/uL (130-400); RED BLOOD CELL COUNT(AUTO) 4.09 MIL/uL (4.50-6.20); RED CELL DISTRIBUTION WIDTH 13.5 % (11.0-15.5); WHITE BLOOD COUNT (AUTO) 14.3 K/uL (4.8-10.8)
[2020-03-18 04:09] LABS: ALBUMIN 1.9 g/dL (3.5-5.0); BILIRUBIN,TOTAL 0.4 mg/dL (0.2-1.0); PHOSPHORUS 3.1 mg/dL (2.5-4.9); POTASSIUM 3.8 mmol/L (3.5-5.1); TOTAL PROTEIN, SERUM 6.3 g/dL (6.0-8.3)
[2020-03-18] MEDS: ZOSYN 3.375GM+NS 50ML 50 ML IV SCH ×3 (06:36→22:41)
[2020-03-18] MEDS: INSULIN HUMULIN R 100 UNIT/ML 3ML SQ SCH ×4 (06:38→21:00)
[2020-03-18] MEDS: GUAIFENESIN-DM 200/20 MG 10 ML PO SCH ×3 (06:40→15:31)
[2020-03-18] MEDS: ACETYLCYSTEINE 20% 200MG/ML 4ML VIAL IH SCH ×5 (07:14→23:53)
[2020-03-18] MEDS: ALBUTEROL SULFATE 0.083% 2.5 MG/3 ML INH IH SCH ×5 (07:14→23:48)
[2020-03-18 07:36] LABS: ABG BASE EXCESS 2.7 mmol/L (-2.0-3.0); ABG HCO3 26.6 mmol/L (21.0-28.0); ABG PCO2 39 mmHg (35-48)
[2020-03-18 07:40] LABS: ABG BASE EXCESS 4.1 mmol/L (-2.0-3.0); ABG HCO3 29.3 mmol/L (21.0-28.0); ABG OXYGEN SATURATION 95.7 % (95.0-99.0); ABG PCO2 46 mmHg (35-48)
[2020-03-18] MEDS: LEVOFLOXACIN 500 MG/D5W 100 ML 100 ML IV SCH (07:45)
[2020-03-18] MEDS: POTASSIUM CHLORIDE 10% ELIXIR 20 MEQ/15 ML UDCUP PO PRN ×2 (07:45→10:33)
[2020-03-18] MEDS: THIAMINE HCL 100 MG/ML 2ML VIAL IVP SCH (07:59)
[2020-03-18] MEDS: FAMOTIDINE/PF 20 MG/2 ML VIAL IV SCH ×2 (08:00→20:59)
[2020-03-18] MEDS: LISINOPRIL 20 MG TABLET PO SCH (08:00)
[2020-03-18] MEDS: FOLIC ACID 1 MG TABLET PO SCH ×2 (08:00→21:00)
[2020-03-18] MEDS: ENOXAPARIN SODIUM 40 MG/0.4 ML SYRINGE SQ SCH (08:00)
[2020-03-18] MEDS: METOPROLOL TARTRATE 25 MG TAB PO SCH ×2 (08:00→21:00)
--- NOTE | 2020-03-18 08:00 | NUR ---
turning/repositioning turned, repositioned to left side. offloaded bony prominences and performed incontinence care
[2020-03-18] MEDS: CHLORHEXIDINE GLUCONATE 473 ML MOUTHWASH MM SCH ×4 (08:01→21:00)
[2020-03-18] MEDS: MULTIVITAMIN TABLET PO SCH (08:01)
--- NOTE | 2020-03-18 08:15 | NUR ---
security personal security specialist present. obtained patient's medication labeled as "farmapram". will hold medication until discharge
--- NOTE | 2020-03-18 09:30 | NUR ---
KRISTAL Abbasi for benchmark present, updated on patient's condition, labs, and other diagnostic exams. no changes to plan of care at this time
[2020-03-18] MEDS: VANCOMYCIN 500MG+NS 100ML 100 ML IV SCH ×2 (09:46→21:06)
--- NOTE | 2020-03-18 10:00 | NUR ---
turning/repositioning turned, repositioned to right side. offloaded bony prominences and performed incontinence care
--- NOTE | 2020-03-18 10:17 | NUR ---
RD UPDATE Pt with possible tube feeding intolerance with notification of multiple loose stools. Recommend modify tube feeding formula to Vital AF 1.2. Pt previously receiving bolus feedings, therefore continuous and bolus tube feeding recommendations provided. Bolus: Recommend 5 cans Vital AF 1.2 per day. Recommended Tube Feeding Schedule: 6AM-1can, 10AM-1can, 2PM-1can, 6PM-1can, 10PM-1can. Recommended flushes: 55mls before and after each feeding. Recs faxed to SONIYA Harmon notified. Please see order form for continuous feeding recommendations. Pt continues with MVI and antibiotics in place. RD to continue to monitor. Please notify as additional nutrition concerns arise. Thank you.
--- NOTE | 2020-03-18 10:26 | NUR ---
designated spokeperson spoke with patient's daughter via phone as she called for updates. updated on patient's condition and plan of care. voiced pleased with care provided by all staff. will continue to assess/monitor patient,and will continue to update her on changes.
[2020-03-18] MEDS: LEVETIRACETAM 750 MG in SODIUM CHLORIDE 0.9% 100 ML IV SCH ×2 (11:21→22:41)
[2020-03-18] MEDS ORDERED: LACTATED RINGERS 1000ML 1,000 ML IV ONE (11:41)
[2020-03-18] MEDS ORDERED: SODIUM CHLORIDE 0.9% 500ML 500 ML IV ONE (11:42)
[2020-03-18] MEDS: LACTATED RINGERS 1000ML 1,000 ML IV SCH (11:47)
--- NOTE | 2020-03-18 12:00 | NUR ---
turning/repositioning turned, repositioned to left side. offloaded bony prominences and performed incontinence care
--- NOTE | 2020-03-18 13:14 | NUR ---
FOLLOW UP COMPLETED. Pt CURRENTLY ON CONTINUOUS BIPAP. RECOMMEND CONTINUED P.O. AT THIS TIME. PLEASE CONSIDER LONG-TERM ALTERNATE MEANS OF NUTRITION/HYDRATION. PROGRAM REVIEW DIRECTOR WILL CONTINUE TO FOLLOW Pt. Addendum: 03/18/20 at 1315 by PIETRO GUZMAN, [facility] Amended: Links added.
--- NOTE | 2020-03-18 14:00 | NUR ---
turning/repositioning turned, repositioned to right side. offloaded bony prominences and performed incontinence care
[2020-03-18] MEDS: BALSAM PERU/CASTOR OIL 60 GM TUBE TP SCH ×2 (15:31→21:10)
--- NOTE | 2020-03-18 16:00 | NUR ---
turning/repositioning turned, repositioned to left side. offloaded bony prominences and performed incontinence care
--- NOTE | 2020-03-18 18:00 | NUR ---
turning/repositioning turned, repositioned to right side. offloaded bony prominences and performed incontinence care
[2020-03-19] VITALS (22 sets, daily range): BP systolic 101–164; BP diastolic 51–96
[2020-03-19] MEDS: GUAIFENESIN-DM 200/20 MG 10 ML PO SCH ×5 (00:18→23:34)
[2020-03-19 03:31] LABS: BASOPHILS % (AUTO) 0.3 % (0.0-5.0); EOSINOPHILS % (AUTO) 2.4 % (0.0-8.0); HEMATOCRIT 40.7 % (42-54); LYMPHOCYTES % (AUTO) 11.8 % (21.0-51.0); MEAN CORPUSCULAR HEMOGLOBIN 31.2 pg (27.0-33.0); MEAN CORPUSCULAR HGB CONC 32.2 g/dL (32.0-36.0); MEAN CORPUSCULAR VOLUME 96.9 fL (79-99); MONOCYTES % (AUTO) 5.9 % (3.0-13.0); NEUTROPHILS % (AUTO) 78.4 % (40.0-77.0); PLATELET COUNT (AUTO) 200 K/uL (130-400); RED CELL DISTRIBUTION WIDTH 13.2 % (11.0-15.5); WHITE BLOOD COUNT (AUTO) 10.5 K/uL (4.8-10.8)
[2020-03-19 03:53] LABS: ALBUMIN 2.1 g/dL (3.5-5.0); BILIRUBIN,TOTAL 0.4 mg/dL (0.2-1.0); CREATININE 1.1 mg/dL (0.5-1.5); MAGNESIUM 3.1 mg/dL (1.80-2.40); POTASSIUM 3.9 mmol/L (3.5-5.1); TOTAL PROTEIN, SERUM 6.3 g/dL (6.0-8.3)
[2020-03-19] MEDS: LACTATED RINGERS 1000ML 1,000 ML IV SCH ×3 (05:16→17:54)
[2020-03-19] MEDS: ALBUTEROL SULFATE 0.083% 2.5 MG/3 ML INH IH SCH ×3 (06:42→19:02)
[2020-03-19] MEDS: ACETYLCYSTEINE 20% 200MG/ML 4ML VIAL IH SCH ×3 (06:42→19:02)
[2020-03-19] MEDS: ZOSYN 3.375GM+NS 50ML 50 ML IV SCH ×3 (07:23→21:47)
[2020-03-19] MEDS: INSULIN HUMULIN R 100 UNIT/ML 3ML SQ SCH ×4 (07:30→21:00)
[2020-03-19] MEDS: LEVOFLOXACIN 500 MG/D5W 100 ML 100 ML IV SCH (09:58)
[2020-03-19] MEDS: FAMOTIDINE/PF 20 MG/2 ML VIAL IV SCH ×2 (10:03→21:32)
[2020-03-19] MEDS: THIAMINE HCL 100 MG/ML 2ML VIAL IVP SCH (10:03)
[2020-03-19] MEDS: METOPROLOL TARTRATE 25 MG TAB PO SCH ×2 (10:03→21:32)
[2020-03-19] MEDS: FOLIC ACID 1 MG TABLET PO SCH ×2 (10:03→21:32)
[2020-03-19] MEDS: MULTIVITAMIN TABLET PO SCH (10:03)
[2020-03-19] MEDS: ENOXAPARIN SODIUM 40 MG/0.4 ML SYRINGE SQ SCH (10:05)
[2020-03-19] MEDS: CHLORHEXIDINE GLUCONATE 473 ML MOUTHWASH MM SCH ×4 (10:16→21:32)
[2020-03-19] MEDS: BALSAM PERU/CASTOR OIL 60 GM TUBE TP SCH ×3 (10:17→21:33)
[2020-03-19] MEDS: LISINOPRIL 20 MG TABLET PO SCH (10:17)
[2020-03-19] MEDS: LEVETIRACETAM 750 MG in SODIUM CHLORIDE 0.9% 100 ML IV SCH ×2 (10:57→21:47)
--- NOTE | 2020-03-19 15:48 | NUR ---
FOLLOW UP COMPLETED. Pt WITH BIPAP IN PLACE AT THIS TIME. NG TUBE IN PLACE. NO FOOD OR LIQUIDS PROVIDED AT THIS TIME. INDEPENDENT DISTRIBUTOR WILL CONTINUE TO FOLLOW Pt. Addendum: 03/19/20 at 1549 by PIETRO GUZMAN, [facility] ST Amended: Links added.
[2020-03-19] MEDS: NYSTATIN 15 GM POWDER TP SCH ×2 (17:54→21:33)
[2020-03-20] VITALS (24 sets, daily range): BP systolic 56–163; BP diastolic 41–92
[2020-03-20] MEDS: ALBUTEROL SULFATE 0.083% 2.5 MG/3 ML INH IH SCH ×5 (00:59→23:58)
[2020-03-20] MEDS: ACETYLCYSTEINE 20% 200MG/ML 4ML VIAL IH SCH ×2 (01:00→06:20)
[2020-03-20 03:36] LABS: BASOPHILS % (AUTO) 0.3 % (0.0-5.0); EOSINOPHILS % (AUTO) 1.9 % (0.0-8.0); LYMPHOCYTES % (AUTO) 8.5 % (21.0-51.0); MEAN CORPUSCULAR HGB CONC 32.3 g/dL (32.0-36.0); MEAN CORPUSCULAR VOLUME 96.2 fL (79-99); MONOCYTES % (AUTO) 5.7 % (3.0-13.0); NEUTROPHILS % (AUTO) 82.6 % (40.0-77.0); PLATELET COUNT (AUTO) 206 K/uL (130-400); RED BLOOD CELL COUNT(AUTO) 4.16 MIL/uL (4.50-6.20); RED CELL DISTRIBUTION WIDTH 13.1 % (11.0-15.5); WHITE BLOOD COUNT (AUTO) 12.4 K/uL (4.8-10.8)
[2020-03-20 03:49] LABS: BILIRUBIN,TOTAL 0.3 mg/dL (0.2-1.0); POTASSIUM 3.8 mmol/L (3.5-5.1)
[2020-03-20] MEDS: LACTATED RINGERS 1000ML 1,000 ML IV SCH ×2 (03:52→14:07)
[2020-03-20] MEDS: ZOSYN 3.375GM+NS 50ML 50 ML IV SCH ×3 (05:09→22:28)
[2020-03-20] MEDS: GUAIFENESIN-DM 200/20 MG 10 ML PO SCH ×4 (05:09→23:36)
[2020-03-20] MEDS: INSULIN HUMULIN R 100 UNIT/ML 3ML SQ SCH ×3 (06:35→16:28)
[2020-03-20] MEDS: LEVOFLOXACIN 500 MG/D5W 100 ML 100 ML IV SCH (08:32)
[2020-03-20] MEDS: LISINOPRIL 20 MG TABLET PO SCH (08:33)
[2020-03-20] MEDS: FAMOTIDINE/PF 20 MG/2 ML VIAL IV SCH ×2 (08:33→21:12)
[2020-03-20] MEDS: FOLIC ACID 1 MG TABLET PO SCH ×2 (08:33→21:13)
[2020-03-20] MEDS: MULTIVITAMIN TABLET PO SCH (08:33)
[2020-03-20] MEDS: METOPROLOL TARTRATE 25 MG TAB PO SCH ×2 (08:33→21:13)
[2020-03-20] MEDS: ENOXAPARIN SODIUM 40 MG/0.4 ML SYRINGE SQ SCH (08:34)
[2020-03-20] MEDS: THIAMINE HCL 100 MG/ML 2ML VIAL IVP SCH (08:34)
--- NOTE | 2020-03-20 09:52 | NUR ---
Gallo SMALLS NP, IN ROOM WITH AIRAM.
[2020-03-20] MEDS: LEVETIRACETAM 750 MG in SODIUM CHLORIDE 0.9% 100 ML IV SCH ×2 (10:10→21:26)
[2020-03-20] MEDS: CHLORHEXIDINE GLUCONATE 473 ML MOUTHWASH MM SCH ×4 (10:11→21:13)
[2020-03-20] MEDS: NYSTATIN 15 GM POWDER TP SCH ×2 (10:13→21:14)
[2020-03-20] MEDS: BALSAM PERU/CASTOR OIL 60 GM TUBE TP SCH ×3 (10:14→21:15)
--- NOTE | 2020-03-20 12:33 | NUR ---
STACIA BLEVINS CALLED SAID RECEIVED VOUCHER FOR SINDY DR. DUNAWAY SAID TO HOLD TRANSFER FOR ANOTHER DAY. MOT, EMS, COVID FORM IN CHART. MOT STILL NEEDS SIGNATURE.
--- NOTE | 2020-03-20 13:30 | NUR ---
PT. WITH WET COUGH, OROPHARYNGEAL SUCTIONING PERFORMED, PT.'S GIRLFRIEND AT BEDSIDE. PT. WITH LOOSE, GREEN BM. CARE RENDERED AND REPOSITIONED. ASSISTED BY PT.'S GIRLFRIEND, PER HERSELF. PT. NOTED TO HAVE RASH TO SCROTAL, PERINEAL AND BUTTOCKS AREA (CREAM AND NYSTATIN POWDER APPLIED) , GIRLFRIEND STATES, "YEAH, HE'S HAD THAT." REDNESS/RASH NOTED TO UPPER BACK WELL. REPOSITIONED WITH USE OF PILLOW; NOTIFIED PT.'S GIRLFRIEND PT. WILL NOT STAY IN PLACE AND REPOSITIONS HIMSELF FREQUENTLY, INCLUDING TO POINT OF HAVING HIS HEAD ON SIDERAIL, VERBALIZED UNDERSTANDING.
--- NOTE | 2020-03-20 15:15 | NUR ---
RECEIVED CALL FROM PT.'S DAUGHTER, LOC CALLAHAN, UPDATED ON STATUS AND WISHED TO SPEAK TO PT. REQUESTING PHONE BE PLACED ON PT.'S EAR, THIS NURSE COMPLIED AND DAUGHTER SPEAKING WITH PT.
--- NOTE | 2020-03-20 15:38 | NUR ---
DR. MEANS IN ROOM WITH PT.
[2020-03-21] VITALS (14 sets, daily range): BP systolic 129–170; BP diastolic 31–97
[2020-03-21] MEDS: LACTATED RINGERS 1000ML 1,000 ML IV SCH ×2 (02:14→11:01)
[2020-03-21] MEDS: ZOSYN 3.375GM+NS 50ML 50 ML IV SCH ×3 (05:01→22:15)
[2020-03-21] MEDS: INSULIN HUMULIN R 100 UNIT/ML 3ML SQ SCH ×4 (05:46→18:00)
[2020-03-21] MEDS: GUAIFENESIN-DM 200/20 MG 10 ML PO SCH ×3 (05:50→18:48)
[2020-03-21] MEDS: ALBUTEROL SULFATE 0.083% 2.5 MG/3 ML INH IH SCH ×3 (06:14→17:11)
[2020-03-21 08:26] LABS: HEMATOCRIT 38.4 % (42-54); MEAN CORPUSCULAR HEMOGLOBIN 30.8 pg (27.0-33.0); MEAN CORPUSCULAR HGB CONC 32.3 g/dL (32.0-36.0); MEAN CORPUSCULAR VOLUME 95.5 fL (79-99); RED BLOOD CELL COUNT(AUTO) 4.02 MIL/uL (4.50-6.20); RED CELL DISTRIBUTION WIDTH 13.2 % (11.0-15.5); WHITE BLOOD COUNT (AUTO) 11.2 K/uL (4.8-10.8)
[2020-03-21] MEDS: FOLIC ACID 1 MG TABLET PO SCH ×2 (08:31→20:11)
[2020-03-21] MEDS: METOPROLOL TARTRATE 25 MG TAB PO SCH ×2 (08:31→20:12)
[2020-03-21] MEDS: MULTIVITAMIN TABLET PO SCH (08:31)
[2020-03-21] MEDS: THIAMINE HCL 100 MG/ML 2ML VIAL IVP SCH (08:32)
[2020-03-21] MEDS: LISINOPRIL 20 MG TABLET PO SCH (08:32)
[2020-03-21] MEDS: FAMOTIDINE/PF 20 MG/2 ML VIAL IV SCH ×2 (08:32→20:11)
[2020-03-21] MEDS: ENOXAPARIN SODIUM 40 MG/0.4 ML SYRINGE SQ SCH (08:35)
[2020-03-21] MEDS: LEVOFLOXACIN 500 MG/D5W 100 ML 100 ML IV SCH (08:35)
[2020-03-21] MEDS: NYSTATIN 15 GM POWDER TP SCH ×2 (08:35→20:12)
[2020-03-21 08:41] LABS: CREATININE 0.9 mg/dL (0.5-1.5); MAGNESIUM 1.9 mg/dL (1.80-2.40); POTASSIUM 3.4 mmol/L (3.5-5.1)
[2020-03-21] MEDS: CHLORHEXIDINE GLUCONATE 473 ML MOUTHWASH MM SCH ×4 (08:46→20:12)
[2020-03-21] MEDS: BALSAM PERU/CASTOR OIL 60 GM TUBE TP SCH ×3 (09:24→20:18)
[2020-03-21] MEDS: LEVETIRACETAM 750 MG in SODIUM CHLORIDE 0.9% 100 ML IV SCH ×2 (09:24→22:15)
[2020-03-21] MEDS ORDERED: LOPERAMIDE 1 MG/7.5 ML UDCUP PO SCH (10:30)
[2020-03-21] MEDS ORDERED: PHARMACY COMMUNICATION MISC SCH (10:45)
[2020-03-21] MEDS: LOPERAMIDE HCL 2 MG CAP PO SCH ×2 (10:58→20:16)
[2020-03-21] MEDS: ACETAMINOPHEN 325 MG TAB PO PRN (11:01)
[2020-03-21] MEDS: FLUOXETINE HCL 20 MG CAPSULE PO SCH (12:52)
[2020-03-22] VITALS: BP 133/60
[2020-03-22] MEDS: GUAIFENESIN-DM 200/20 MG 10 ML PO SCH ×5 (00:03→22:35)
[2020-03-22] MEDS: LACTATED RINGERS 1000ML 1,000 ML IV SCH ×2 (00:13→10:10)
[2020-03-22] MEDS: ALBUTEROL SULFATE 0.083% 2.5 MG/3 ML INH IH SCH ×4 (00:28→18:39)
[2020-03-22] MEDS: MAGNESIUM 2GM PREMIX 50ML 50 ML IV PRN (02:48)
[2020-03-22 03:48] VITALS: BP 116/57
[2020-03-22] MEDS: POTASSIUM CHLORIDE 10% ELIXIR 20 MEQ/15 ML UDCUP PO PRN ×2 (04:24→06:17)
[2020-03-22] MEDS: INSULIN HUMULIN R 100 UNIT/ML 3ML SQ SCH ×5 (05:58→23:30)
[2020-03-22] MEDS: ZOSYN 3.375GM+NS 50ML 50 ML IV SCH (05:59)
[2020-03-22 07:33] VITALS: BP 125/64
[2020-03-22 08:33] LABS: MAGNESIUM 2.6 mg/dL (1.80-2.40)
[2020-03-22] MEDS: FAMOTIDINE/PF 20 MG/2 ML VIAL IV SCH ×2 (10:08→21:53)
[2020-03-22] MEDS: METOPROLOL TARTRATE 25 MG TAB PO SCH ×2 (10:08→21:53)
[2020-03-22] MEDS: ENOXAPARIN SODIUM 40 MG/0.4 ML SYRINGE SQ SCH (10:08)
[2020-03-22] MEDS: LOPERAMIDE HCL 2 MG CAP PO SCH ×2 (10:09→21:53)
[2020-03-22] MEDS: FOLIC ACID 1 MG TABLET PO SCH ×2 (10:09→21:53)
[2020-03-22] MEDS: FLUOXETINE HCL 20 MG CAPSULE PO SCH (10:09)
[2020-03-22] MEDS: MULTIVITAMIN TABLET PO SCH (10:09)
[2020-03-22] MEDS: LISINOPRIL 20 MG TABLET PO SCH (10:09)
[2020-03-22] MEDS: THIAMINE HCL 100 MG/ML 2ML VIAL IVP SCH (10:09)
[2020-03-22] MEDS: LEVOFLOXACIN 500 MG/D5W 100 ML 100 ML IV SCH (10:09)
[2020-03-22] MEDS: NYSTATIN 15 GM POWDER TP SCH ×2 (10:10→21:54)
[2020-03-22] MEDS: CHLORHEXIDINE GLUCONATE 473 ML MOUTHWASH MM SCH ×4 (10:10→21:54)
[2020-03-22] MEDS: BALSAM PERU/CASTOR OIL 60 GM TUBE TP SCH ×3 (10:11→21:55)
[2020-03-22] MEDS: LEVETIRACETAM 750 MG in SODIUM CHLORIDE 0.9% 100 ML IV SCH ×2 (10:33→21:58)
[2020-03-22 11:34] VITALS: BP 103/75
[2020-03-22] MEDS ORDERED: FLUOXETINE HCL 20 MG CAPSULE PO SCH (13:30)
[2020-03-22 14:44] LABS: CHOLESTEROL 129 mg/dL (<200); HDL CHOLESTEROL 87 mg/dL (29-71); LDL DIRECT 71 mg/dL (0-99); TRIGLYCERIDES 137 mg/dL (30-200)
[2020-03-22 15:30] VITALS: BP 123/66
--- NOTE | 2020-03-22 16:30 | NUR ---
[facility]:DCP Discussed w Ayleen ALVAREZ regarding Dr. Llanes clearing pt for dc to [facility]. However per Ayleen, SYSTEMS ADMINISTRATION ANALYST she is consulting neurology in am dt new onset aphasia. CM to continue to follow.
[2020-03-22 19:55] VITALS: BP 118/53
[2020-03-23] MEDS: ALBUTEROL SULFATE 0.083% 2.5 MG/3 ML INH IH SCH ×5 (00:07→23:51)
[2020-03-23] MEDS: LACTATED RINGERS 1000ML 1,000 ML IV SCH ×3 (00:48→21:45)
[2020-03-23 03:06] VITALS: BP 124/64
[2020-03-23] MEDS: GUAIFENESIN-DM 200/20 MG 10 ML PO SCH ×3 (04:53→22:51)
[2020-03-23] MEDS: INSULIN HUMULIN R 100 UNIT/ML 3ML SQ SCH ×2 (05:44→12:00)
[2020-03-23 08:03] VITALS: BP 125/88
[2020-03-23 08:19] LABS: BASOPHILS % (AUTO) 0.3 % (0.0-5.0); EOSINOPHILS % (AUTO) 2.4 % (0.0-8.0); HEMATOCRIT 36.4 % (42-54); LYMPHOCYTES % (AUTO) 17.4 % (21.0-51.0); MEAN CORPUSCULAR HEMOGLOBIN 31.2 pg (27.0-33.0); MEAN CORPUSCULAR HGB CONC 32.4 g/dL (32.0-36.0); MEAN CORPUSCULAR VOLUME 96.3 fL (79-99); NEUTROPHILS % (AUTO) 71.3 % (40.0-77.0); PLATELET COUNT (AUTO) 259 K/uL (130-400); RED BLOOD CELL COUNT(AUTO) 3.78 MIL/uL (4.50-6.20); RED CELL DISTRIBUTION WIDTH 13.3 % (11.0-15.5); WHITE BLOOD COUNT (AUTO) 10.3 K/uL (4.8-10.8)
[2020-03-23 08:38] LABS: ALBUMIN 2.1 g/dL (3.5-5.0); BILIRUBIN,TOTAL 0.3 mg/dL (0.2-1.0); MAGNESIUM 2.8 mg/dL (1.80-2.40); TOTAL PROTEIN, SERUM 6.4 g/dL (6.0-8.3)
[2020-03-23] MEDS: FAMOTIDINE/PF 20 MG/2 ML VIAL IV SCH ×2 (08:57→22:46)
[2020-03-23] MEDS: THIAMINE HCL 100 MG/ML 2ML VIAL IVP SCH (08:57)
[2020-03-23] MEDS: LEVOFLOXACIN 500 MG/D5W 100 ML 100 ML IV SCH (08:57)
[2020-03-23] MEDS: LOPERAMIDE HCL 2 MG CAP PO SCH ×2 (08:58→22:46)
[2020-03-23] MEDS: MULTIVITAMIN TABLET PO SCH (08:58)
[2020-03-23] MEDS: FOLIC ACID 1 MG TABLET PO SCH ×2 (08:58→22:46)
[2020-03-23] MEDS: METOPROLOL TARTRATE 25 MG TAB PO SCH ×2 (08:58→22:46)
[2020-03-23] MEDS: LISINOPRIL 20 MG TABLET PO SCH (08:58)
[2020-03-23] MEDS: ASPIRIN 81MG TAB.CHEW PO SCH (08:59)
[2020-03-23] MEDS: ENOXAPARIN SODIUM 40 MG/0.4 ML SYRINGE SQ SCH (08:59)
[2020-03-23] MEDS: FLUOXETINE HCL 20 MG CAPSULE PO SCH (08:59)
[2020-03-23] MEDS: NYSTATIN 15 GM POWDER TP SCH ×2 (09:00→21:00)
[2020-03-23] MEDS: CHLORHEXIDINE GLUCONATE 473 ML MOUTHWASH MM SCH ×3 (09:00→21:00)
[2020-03-23] MEDS: BALSAM PERU/CASTOR OIL 60 GM TUBE TP SCH ×3 (09:02→21:00)
--- NOTE | 2020-03-23 11:30 | NUR ---
DYSPHAGIA EVAL COMPLETED. -S/S OF ASPIRATION. RECOMMEND SHORT-TERM ALTERNATE MEANS OF NUTRITION/HYDRATION; PLEASURE FEEDS PUREED, THIN LIQUIDS. RECOMMENDATIONS: DYSPHAGIA THERAPY 3-5X WEEK TO INCREASE ORAL MOTOR STRENGTH AND PHARYNGEAL SWALLOW: LTG#1: Pt WILL TOLERATE LEAST RESTRICTIVE DIET TO MEET NUTRITION/HYDRATION WITH NO S/S OF ASPIRATION. LTG#2: SKILLED EDUCATION Pt/FAMILY/STAFF STG#1: Pt WILL PARTICIPATE IN LARYNGEAL ELEVATION/EXCURSION EXERCISES WITH 80% ACCURACY. STG#2: Pt WILL PARTICIPATE IN TONGUE BASE RETRACTION EXERCISES WITH 80% ACCURACY. STG#3: Pt WILL PARTICIPATE IN ORAL MOTOR EXERCISES WITH 80% ACCURACY. STG#4: Pt WILL PARTICIPATE IN PLEASURE FEEDS OF PUREED AND THIN LIQUIDS WITH NO S/S OF ASPIRATION. STG#5: PT WILL BE ABLE TO PARTICIPATE IN MBSS AFTER 2-4 WEEKS OF THERAPEUTIC INTERVENTION. STG#6: SKILLED EDUCATION Pt/FAMILY/STAFF. Addendum: 03/23/20 at [address] ST Amended: Links added.
[2020-03-23 12:07] VITALS: BP 135/71
[2020-03-23] MEDS: LEVETIRACETAM 750 MG in SODIUM CHLORIDE 0.9% 100 ML IV SCH ×2 (13:00→22:53)
[2020-03-23 16:00] VITALS: BP 138/61
[2020-03-23 20:36] VITALS: BP 131/72
[2020-03-24 00:20] VITALS: BP 128/63
[2020-03-24 04:42] VITALS: BP 165/92
--- NOTE | 2020-03-24 05:00 | NUR ---
NOTE SEIZURE PADS APPLIED TO X3 RAILS, PER SEIZURE PRECAUTIONS. SUCTION CANISTER CONNECTED TO WALL SETUP, YANKAUER CONNECTED.
[2020-03-24] MEDS: INSULIN HUMULIN R 100 UNIT/ML 3ML SQ SCH ×3 (06:00→11:19)
--- NOTE | 2020-03-24 06:00 | NUR ---
FEEDING ADMIN PT MANDA FDG WELL. HOB ELEVATED TO 45 DEGREES.
[2020-03-24] MEDS: ALBUTEROL SULFATE 0.083% 2.5 MG/3 ML INH IH SCH ×2 (06:20→11:05)
[2020-03-24] MEDS: GUAIFENESIN-DM 200/20 MG 10 ML PO SCH ×2 (06:22→11:17)
[2020-03-24 07:30] VITALS: BP 141/57
[2020-03-24 08:19] VITALS: BP 141/57
[2020-03-24] MEDS: LEVOFLOXACIN 500 MG/D5W 100 ML 100 ML IV SCH (08:30)
[2020-03-24] MEDS: ASPIRIN 81MG TAB.CHEW PO SCH (09:00)
[2020-03-24] MEDS: NYSTATIN 15 GM POWDER TP SCH (09:00)
[2020-03-24] MEDS: THIAMINE HCL 100 MG/ML 2ML VIAL IVP SCH (09:00)
[2020-03-24] MEDS: LISINOPRIL 20 MG TABLET PO SCH (09:00)
[2020-03-24] MEDS: CHLORHEXIDINE GLUCONATE 473 ML MOUTHWASH MM SCH ×2 (09:00→13:00)
[2020-03-24] MEDS: FAMOTIDINE/PF 20 MG/2 ML VIAL IV SCH (09:00)
[2020-03-24] MEDS: FOLIC ACID 1 MG TABLET PO SCH (09:00)
[2020-03-24] MEDS: LOPERAMIDE HCL 2 MG CAP PO SCH (09:00)
[2020-03-24] MEDS: METOPROLOL TARTRATE 25 MG TAB PO SCH (09:00)
[2020-03-24] MEDS: MULTIVITAMIN TABLET PO SCH (09:00)
[2020-03-24] MEDS: ENOXAPARIN SODIUM 40 MG/0.4 ML SYRINGE SQ SCH (09:00)
[2020-03-24] MEDS: FLUOXETINE HCL 20 MG CAPSULE PO SCH (09:00)
[2020-03-24] MEDS: BALSAM PERU/CASTOR OIL 60 GM TUBE TP SCH ×2 (09:00→14:00)
[2020-03-24 11:00] VITALS: BP 147/76
[2020-03-24] MEDS: LEVETIRACETAM 750 MG in SODIUM CHLORIDE 0.9% 100 ML IV SCH (11:06)
--- NOTE | 2020-03-24 14:06 | NUR ---
REPORT CALLED Report called to SONIYA Burden at [facility] in [place]. All questions answered and concerns addressed. Will clean patient, remove NG tube and prepare for transfer.
--- NOTE | 2020-03-24 16:02 | NUR ---
DYSPHAGIA RE-EVAL COMPLETED. -S/S OF ASPIRATION. RECOMMEND PUREED, THIN LIQUIDS; PILLS CRUSHED WITH APPLESAUCE. RECOMMENDATIONS: 1. CONTINUE GOALS ESTABLISHED DURING INITIAL PLAN OF CARE. ADDED GOALS: STG#6: Pt WILL TOLERATE PUREED, THIN LIQUID DIET WITH NO S/S OF ASPIRATION. STG#4 AMENDED: Pt WILL TOLERATE THERAPEUTIC TRIALS OF ADVANCED TEXTURE OR MECHANICAL SOFT, THIN LIQUIDS WITH NO OVERT S/S OF ASPIRATION. Addendum: 03/24/20 at 1605 by PIETRO GUZMAN [facility] Amended: Links added.
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
--- NOTE | 2020-03-24 17:35 | NUR ---
EMS TRANSPORT EMS AT BEDSIDE TO TRANSPORT PT TO [facility]. EMS PROVIDED WITH DISCHARGE PAPERWORK. ALL QUESTIONS ANSWERED AND CONCERNS ADDRESSED. PT IN NAD DURING TRANSPORT.
== END 2020-03-24 17:33 | DRG 917 ==
LOC: EDH 01:56 → EDHIP 05:27 → 2DH 22:20 → 4AH 03-21 16:12
PROVIDERS: ADMIT Internal Medicine Critical Care Medicine; ATTEND Internal Medicine Critical Care Medicine
PROC: 5A1955Z Respiratory Ventilation, Greater than 96 Consecutive Hours (ICD-10-PCS; principal; 2020-03-06)
PROC: 0BH17EZ Insertion of Endotracheal Airway into Trachea, Via Natural or Artificial Opening (ICD-10-PCS; 2020-03-06)
PROC: 5A09357 Assistance with Respiratory Ventilation, Less than 24 Consecutive Hours, Continuous Positive Airway Pressure (ICD-10-PCS; 2020-03-07)
PROC: 5A09357 Assistance with Respiratory Ventilation, Less than 24 Consecutive Hours, Continuous Positive Airway Pressure (ICD-10-PCS; 2020-03-11)
PROC: 5A09557 Assistance with Respiratory Ventilation, Greater than 96 Consecutive Hours, Continuous Positive Airway Pressure (ICD-10-PCS; 2020-03-13)
DX: T42.4X1A Poisoning by benzodiazepines, accidental (unintentional), initial encounter (principal); J96.01 Acute respiratory failure with hypoxia; J69.0 Pneumonitis due to inhalation of food and vomit; G92 Toxic encephalopathy; E87.0 Hyperosmolality and hypernatremia; R47.01 Aphasia; N17.9 Acute kidney failure, unspecified; T14.91XA Suicide attempt, initial encounter; F10.129 Alcohol abuse with intoxication, unspecified; F32.9 Major depressive disorder, single episode, unspecified; I10 Essential (primary) hypertension; G47.33 Obstructive sleep apnea (adult) (pediatric); E78.5 Hyperlipidemia, unspecified; F43.10 Post-traumatic stress disorder, unspecified; S90.822A Blister (nonthermal), left foot, initial encounter; G62.9 Polyneuropathy, unspecified; Z79.899 Other long term (current) drug therapy; Z88.8 Allergy status to other drugs, medicaments and biological substances; Z90.89 Acquired absence of other organs; Y92.89 Other specified places as the place of occurrence of the external cause; Y93.89 Activity, other specified; Y99.8 Other external cause status
CPT/HCPCS: 31500; 36415; 36600; 70450; 71045; 71275; 80048; 80053; 80061; 80202; 80305; 81001; 82140; 82247; 82248; 82803; 82948; 83690; 83735; 83880; 84100; 84132; 84443; 85025; 85027; 85378; 85610; 85730; 87040; 87071; 87088; 87205; 92610; 93005; 93306; 93970; 94002; 94003; 94640; 94660; 94664; 94667; 94668; 99291; G0378; G0481; J0360; J0696; J1650; J1940; J1953; J1956; J2060; J2250; J2543; J2704; J3010; J3370; J3411; J3475; J3480; J3490; J7030; J7040; J7042; J7050; J7070; J7120; J7608; Q9967

== ENCOUNTER → 2020-12-15 | Outpatient (CLI) | payer OTHER ==
[~2020-12-15] MED LIST changes: -ALPR0.5T8 PO; +BENZ200C53 PO; -CETI10TA57 PO; -CHOL100044 PO; +DIATR MEGLU/DIATRIZOATE SODIUM 30 ML BOTTLE ONE; -FLUO20CA35 PO; +FLUO20SO2 PO; -FLUT16H NS; -GEMF600T5 PO; -HYDR-4068 PO; -LEVO500T2 PO; -MELA3TAB41 PO; -MULT-248 PO; -OMEP40CA13 PO; -PREG100C PO; -RANI150T7 PO; -VITA1CAP85 PO
== END | disposition home or self-care (01) ==
LOC: RAH 15:06
PROVIDERS: ATTEND Internal Medicine Gastroenterology
DX: Z43.1 Encounter for attention to gastrostomy (principal)
CPT/HCPCS: 74018; Q9963

== ENCOUNTER 2021-01-09 12:43 | Observation (INO) | payer OTHER ==
[~2021-01-09] VITALS: Ht 175.3 cm; Wt 74.8 kg
[~2021-01-09 12:43] MED LIST changes: -DIATR MEGLU/DIATRIZOATE SODIUM 30 ML BOTTLE ONE
[2021-01-09] MEDS ORDERED: 0.9%NACL 1000ML 1,000 ML IV ONE (19:30)
[2021-01-09 20:30] VITALS: BP 142/69
[2021-01-09 20:51] LABS: BASOPHILS % (AUTO) 0.3 % (0.0-5.0); EOSINOPHILS % (AUTO) 1.7 % (0.0-8.0); HEMATOCRIT 45.2 % (42-54); LYMPHOCYTES % (AUTO) 26.3 % (21.0-51.0); MEAN CORPUSCULAR HEMOGLOBIN 29.3 pg (27.0-33.0); MEAN CORPUSCULAR HGB CONC 31.9 g/dL (32.0-36.0); MEAN CORPUSCULAR VOLUME 91.9 fL (79-99); MONOCYTES % (AUTO) 7.4 % (3.0-13.0); NEUTROPHILS % (AUTO) 64.1 % (40.0-77.0); PLATELET COUNT (AUTO) 182 K/uL (130-400); RED BLOOD CELL COUNT(AUTO) 4.92 MIL/uL (4.50-6.20); RED CELL DISTRIBUTION WIDTH 14.8 % (11.0-15.5); WHITE BLOOD COUNT (AUTO) 8.7 K/uL (4.8-10.8)
[2021-01-09 21:02] LABS: INR 0.97 (0.85-1.15); PROTHROMBIN TIME 10.6 SEC (9.6-11.6)
[2021-01-09 21:03] LABS: PARTIAL THROMBOPLASTIN TIME 21.9 SEC (26.3-35.5)
[2021-01-09 21:11] LABS: ALBUMIN 4.1 g/dL (3.5-5.0); BILIRUBIN,TOTAL 0.7 mg/dL (0.2-1.0); CREATININE 1.2 mg/dL (0.5-1.5); POTASSIUM 4.6 mmol/L (3.5-5.1); TOTAL PROTEIN, SERUM 8.9 g/dL (6.0-8.3)
[2021-01-09 21:21] LABS: B-TYPE NATRIURETIC PEPTIDE 41 pg/mL (0-100)
[2021-01-09 21:54] LABS: APPEARANCE,URINE Clear (CLEAR); BILIRUBIN,URINE Negative (NEGATIVE); COLOR,URINE Yellow (YELLOW); GLUCOSE, URINE (UA) Negative (NEGATIVE); KETONES,URINE Negative (NEGATIVE); LEUKOCYTE ESTERASE ,URINE Small (NEGATIVE); NITRATE,URINE Negative (NEGATIVE); OCCULT BLOOD,URINE Negative (NEGATIVE); PROTEIN,URINE Negative (NEGATIVE)
[2021-01-09 22:02] LABS: RBC,URINE 0-1 /HPF (0-1); WBC,URINE 0-1 /HPF (0-1)
[2021-01-09 22:03] LABS: BACTERIA,URINE Rare /HPF (None Seen); MUCUS,URINE None Seen LPF (None Seen); SQUAMOUS EPITHELIAL CELL,UR Rare /HPF (0-2)
[2021-01-09 22:47] VITALS: BP 145/72
[2021-01-09] MEDS ORDERED: LORAZEPAM 2 MG/ML 1 ML VIAL IM PRN (23:30)
[2021-01-09 23:48] VITALS: BP 135/91
[2021-01-10 01:54] VITALS: BP 135/91
[2021-01-10 03:30] VITALS: BP 118/64
[2021-01-10 04:57] VITALS: BP 115/65
[2021-01-10 06:20] LABS: HEMATOCRIT 38.3 % (42-54); MEAN CORPUSCULAR HEMOGLOBIN 29.2 pg (27.0-33.0); MEAN CORPUSCULAR HGB CONC 31.9 g/dL (32.0-36.0); MEAN CORPUSCULAR VOLUME 91.6 fL (79-99); RED BLOOD CELL COUNT(AUTO) 4.18 MIL/uL (4.50-6.20); RED CELL DISTRIBUTION WIDTH 14.6 % (11.0-15.5)
[2021-01-10] MEDS ORDERED: HYDRALAZINE 20MG/ML VIAL IV PRN (06:30)
[2021-01-10] MEDS ORDERED: ACETAMINOPHEN 325 MG TAB PO PRN ×2 (06:30→08:30)
[2021-01-10] MEDS ORDERED: 0.9%NACL 1000ML 1,000 ML IV SCH (06:30)
[2021-01-10] MEDS ORDERED: ONDANSETRON 4MG INJ IVP PRN ×2 (06:30→08:30)
[2021-01-10 06:35] VITALS: BP 130/51
[2021-01-10 06:44] LABS: POTASSIUM 3.9 mmol/L (3.5-5.1)
[2021-01-10 07:57] VITALS: BP 137/74
[2021-01-10] MEDS ORDERED: LEVOFLOXACIN 500 MG TABLET PO SCH (09:00)
[2021-01-10] MEDS ORDERED: FAMOTIDINE 20MG VIAL IV SCH (09:00)
[2021-01-10] MEDS ORDERED: AMOX-429 PO (10:53)
[2021-01-10 12:42] VITALS: BP 135/67
== END 2021-01-10 13:12 | disposition home or self-care (01) ==
LOC: EDH 12:43 → EDHIP 22:45
PROVIDERS: ADMIT Internal Medicine Pulmonary Disease; ATTEND Internal Medicine Pulmonary Disease
DX: T17.928A Food in respiratory tract, part unspecified causing other injury, initial encounter (principal); R05 Cough; R13.10 Dysphagia, unspecified; F41.9 Anxiety disorder, unspecified; F32.9 Major depressive disorder, single episode, unspecified; N40.0 Benign prostatic hyperplasia without lower urinary tract symptoms; I10 Essential (primary) hypertension; J69.0 Pneumonitis due to inhalation of food and vomit; E78.5 Hyperlipidemia, unspecified; R25.1 Tremor, unspecified; Z79.899 Other long term (current) drug therapy; Z98.890 Other specified postprocedural states; Z93.1 Gastrostomy status
CPT/HCPCS: 36415 ×2; 70450; 71045; 80048; 80053; 81001; 82550; 83880; 84484; 85025; 85027; 85610; 85730; 93005; 96361 ×2; 96374; 99285; G0378 ×14; J3490; J7030

== ENCOUNTER 2025-02-03 18:57 | Emergency (ER) | payer OTHER, MEDICARE ==
[~2025-02-03] VITALS: Ht 175.3 cm; Wt 87.1 kg
[~2025-02-03 18:57] MED LIST changes: +AMOX-429 PO; -BENZ200C53 PO; -FLUO20SO2 PO; +FLUO20SO24 PO
[2025-02-03] MEDS: FAMOTIDINE 20MG VIAL IV STA (19:42)
[2025-02-03] MEDS: BENZONATATE 100 MG CAPSULE PO STA (19:42)
[2025-02-03 19:57] LABS: IMMATURE GRANULOCYTE ABSOLUTE 0.05 K/uL (0-1); NUCLEATED RED BLOOD CELLS 0.0 % (0.0-0.19); PLATELET COUNT (AUTO) 205 K/uL (130-400); RED BLOOD CELL COUNT(AUTO) 4.02 MIL/uL (4.50-6.20); RED CELL DISTRIBUTION WIDTH 14.6 % (11.0-15.5); WHITE BLOOD COUNT (AUTO) 8.6 K/uL (4.8-10.8)
[2025-02-03 20:02] LABS: CREATININE 1.8 mg/dL (0.5-1.3); GLOMERULAR FILTR. RATE CALC 38.0 mL/min (>90); GLUCOSE,RANDOM 107.0 mg/dL (70-105); SODIUM SERUM 133.0 mmol/L (136-145); UREA NITROGEN, BLOOD 26.0 mg/dL (7-18)
--- NOTE | 2025-02-03 20:22 | EKG ---
Test Date: 2025-02-03 Test Time: 19:29:32 Pat Name: BERNADINE CALLAHAN Department: ED Room: Gender: M Diversional Therapist: [id number] : 1945 Requested By: YAZMIN APARICIO Order Number: [id number] Reading MD: Arsenio Smith Measurements Intervals [place] Rate: 79 P: 28 CT: 184 QRS: -56 QRSD: 98 T: 0 QT: 402 QTc: 462 Interpretive Statements Sinus rhythm LEFT AXIS DEVIATION Low voltage, precordial leads Poor R wave progression Compared to ECG 01/10/2021 05:45:15 Left anterior fascicular block now present Low QRS voltage now present Loss of R wave amplitude left precordium Left-axis deviation no longer present Incomplete right bundle-branch block no longer present Electronically Signed On 02-04-2025 07:33:30 CDT by Arsenio Smith Please click the below link to view image of tracing.
[2025-02-03 20:55] LABS: SARS-CoV-2, RNA, NAAT NEGATIVE SARS CoV-2 (NEGATIVE)
--- NOTE | 2025-02-03 20:55 | HMCIMG ---
EXAM: XR Chest, 1 View. CLINICAL HISTORY: 79 year old male with cough. COMPARISON: XR Chest dated 03/19/2025. FINDINGS: LUNGS: The lungs are clear. No consolidation. PLEURAL SPACES: No pleural effusion or pneumothorax. HEART: The heart size is normal. BONES: No acute osseous abnormality. LINES AND TUBES: The previously visualized NG tube is not seen on the current exam. IMPRESSION: 1. No acute findings. /[place]
[2025-02-03 21:01] LABS: INFLUENZA TYPE A Negative For Type A (NEGATIVE); INFLUENZA TYPE B Negative For Type B (NEGATIVE)
[2025-02-03] MEDS: 0.9%NACL 1000ML 1,000 ML IV STA (21:28)
[2025-02-03] MEDS ORDERED: ALBUHFA IH (21:59)
[2025-02-03] MEDS ORDERED: METH4TAB3 PO (21:59)
--- NOTE | 2025-02-03 22:00 | ERN ---
ED Note History of Present Illness Stated Complaint: COUGH X 3 WEEKS Chief Complaint: Cough Time Seen by MD: 18:59 Time Seen by Midlevel: 19:03 Dictation: 79-year-old male coming in for cough for three weeks. Patient states two weeks ago he went to the [facility] and was given antibiotics for a sinus infection, went to the [place] last week and they gave him a cough medication but states he is still having pain. Denies taking any antihypertensive medication. Denies any shortness a breath. Denies any fever. Any chest pain or chest discomfort. Allergies: Coded Allergies: paroxetine (Unverified Allergy, Unknown, 03/14/18) Home Meds Active Scripts Amoxicillin/Potassium Clav (Augmentin 875-125 Tablet) 1 Each Tablet, 1 EACH PO BID for 7 Days, #14 TAB 0 Refills Prov:DANNA CORDOBA APRN 01/10/21 Furosemide (Lasix 20Mg Tab) 20 Mg Tablet, 20 MG PO DAILY for 30 Days, #30 TAB Prov:HORTENCIA MARTINS Jr., MD 05/22/18 Reported Medications Fluoxetine HCl (Fluoxetine HCl) 20 Mg/5 Ml Solution, 20 MG PO DAILY, ML 03/07/20 Past Medical History Past Medical History: CAD, Heart Disease, Hypertension, Hypotension, Other Additional Past Medical Hx: HX OF INTUBATION,NEUROPATHY Surgical History: Other Surgical History Other: Prostate surgery, bilateral corneal transplant, Heart cath Social History: ETOH Review of System Dictation Constitutional: Negative for fever,chills, and weight loss Eyes: Negative for injury, pain,redness, and discharge ENT: Negative for injury,pain or swelling Cardiovascular: Negative for chest pain, palpitations, and edema Respiratory: Complaining of cough Abdomen/GI: Negative for abdominal pain, nausea, vomiting, diarrhea, and cons tipation Back: Negative for injury and pain : Negative for injury, bleeding and discharge MS/Extremity: Negative for injury and deformity Skin: Negative for rash, and discoloration Neuro: Negative for headache, weakness, numbness, tingling, and seizure Psych: Negative for suicide ideation, homicidal ideation, and hallucinations Review of Systems: was completed Initial Vital Sign VS Vital Signs Date Time Temp Pulse Resp B/P (MAP) Pulse Ox O2 Delivery O2 Flow Rate FiO2 02/03/25 18:58 97.9 87 16 132/91 96 Room Air 0 02/03/25 19:46 21 Physical Exam Dictation General: awake, alert, NAD Head/Face: Normocephalic, atraumatic Eyes: PERRL, EOMI, vision at baseline ENT: oral cavity clear, TMs clear, no signs of infection Neck: Trachea midline, supple, no nuchal rigidity Cardiovascular: RRR, normal S1/S2, No MRGs, no JVD Respiratory: CTAB, no respiratory distress, No rales or wheezes Abdomen: Soft, non-tender, non-distended, normal bowel sounds, no guarding or rebound. Skin: Warm, dry, normal turgor, no rash MS/Extremity: Pulses equal, no cyanosis, neurovascular intact, FROM Neuro: COAx4, GCS 15, strength 5/5, CN 2-12 intact, normal cerebellar exam, normal gait, Psych: Normal behavior, mood, and affect normal Results (Laboratory/Radiology) Laboratory/Radiology Laboratory Tests Test 02/03/25 19:40 02/03/25 20:24 02/03/25 21:13 White Blood Count 8.6 K/uL (4.8-10.8) Red Blood Count 4.02 MIL/uL (4.50-6.20) L Hemoglobin 11.7 g/dL (14.0-18.0) L Hematocrit 36.3 % (42-54) L Mean Corpuscular Volume 90.3 fL (79-99) Mean Corpuscular Hemoglobin 29.1 pg (27.0-33.0) Mean Corpuscular Hemoglobin Concent 32.2 g/dL (32.0-36.0) Red Cell Distribution Width 14.6 % (11.0-15.5) Platelet Count 205 K/uL (130-400) Mean Platelet Volume 11.5 fL (7.5-10.5) H Immature Granulocyte % (Auto) 0.6 % (0-1) Neutrophils (%) (Auto) 61.6 % (40.0-77.0) Lymphocytes (%) (Auto) 25.4 % (21.0-51.0) Monocytes (%) (Auto) 9.3 % (3.0-13.0) Eosinophils (%) (Auto) 2.6 % (0.0-8.0) Basophils (%) (Auto) 0.5 % (0.0-5.0) Neutrophils # (Auto) 5.3 K/uL (1.8-7.7) Lymphocytes # (Auto) 2.2 K/uL (1.0-4.8) Monocytes # (Auto) 0.8 K/uL (0.1-1.0) Eosinophils # (Auto) 0.22 K/uL (0.00-0.70) Basophils # (Auto) 0.04 K/uL (0.00-0.20) Absolute Immature Granulocyte (auto 0.05 K/uL (0-1) Nucleated Red Blood Cells 0.0 % (0.0-0.19) Sodium Level 133 mmol/L (136-145) L Potassium Level 4.5 mmol/L (3.5-5.1) Chloride Level 99 mmol/L (101-111) L Carbon Dioxide Level 30 mmol/L (21-32) Blood Urea Nitrogen 26 mg/dL (7-18) H Creatinine 1.8 mg/dL (0.5-1.3) H Glomerular Filtration Rate Calc 38 mL/min (>90) Random Glucose 107 mg/dL (70-105) H Total Calcium 8.9 mg/dL (8.5-10.1) Troponin I High Sensitivity 6 ng/L (4-75) 6 ng/L (4-75) B-Type Natriuretic Peptide 56 pg/mL (0-100) Influenza Type A Antigen Negative For Type A Influenza Type B Antigen Negative For Type B SARS-CoV-2, RNA, NAAT NEGATIVE SARS CoV-2 Group A Streptococcus Rapid negative (NEGATIVE) Labs Reviewed?: Yes ED Course ED Course Orders Procedure Category Date Status Time Cbc With Differential LAB 02/03/25 Complete 19:05 Basic Metabolic Panel LAB 02/03/25 Complete 19:05 B-Type Natriuretic LAB 02/03/25 Complete Peptide 19:05 Troponin I High LAB 02/03/25 Complete Sensitivity 19:05 12 Lead Ekg Tracing- EKG 02/03/25 Complete Technical 19:05 Chest 1vw RAD 02/03/25 Resulted 19:05 Benzonatate 100 Mg PHA 02/03/25 Complete Capsule (Tessalon 100 19:12 Famotidine 20mg Vial PHA 02/03/25 Complete (Pepcid 20mg Vial) 19:12 Covid Rna Naat LAB 02/03/25 Complete 20:23 Influenza Type A & B, LAB 02/03/25 Complete Rapid 20:23 Rapid (Group A Strep) LAB 02/03/25 Complete 20:26 Troponin I High LAB 02/03/25 Complete Sensitivity 21:04 0.9%Nacl 1000ml (Ns PHA 02/03/25 In Process 1000ml) 21:04 Methylprednisolone PHA 02/03/25 Complete Succ 125mg (Solu-Medr 21:30 Current Medications Medications (Trade) Dose Ordered Sig/Emilie Route PRN Reason Start Time Stop Time Status Last Admin Dose Admin Benzonatate (Tessalon 100mg Caps) 200 mg ONCE STAT PO 02/03/25 19:12 02/03/25 19:15 DC Famotidine (Pepcid 20mg Vial) 20 mg ONCE STAT IV 02/03/25 19:12 02/03/25 19:15 DC 02/03/25 19:42 Methylprednisolone Sodium Succinate (Solu-medROL 125MG) 125 mg ONCE ONCE IVP 02/03/25 21:30 02/03/25 21:35 DC 02/03/25 21:53 Sodium Chloride 1,000 ml @ 500 mls/hr Q2H STAT IV 02/03/25 21:04 02/03/25 23:03 02/03/25 21:28 Vital Signs Date Time Temp Pulse Resp B/P (MAP) Pulse Ox O2 Delivery O2 Flow Rate FiO2 02/03/25 19:46 98.2 78 16 144/80 96 Room Air* 0 21 02/03/25 18:58 97.9 87 16 132/91 96 Room Air 0 Medical Decision Making MDM MDM: 79-year-old male coming in for cough for three weeks. Patient states two [facility] for a [facility] infection, went to the [place] last week and they gave him a cough medication but states he is still having pain. Denies taking any antihypertensive medication. Denies any shortness a breath. Denies any fever. Any chest pain or chest discomfort. Only remarkable for mild elevation of creatinine of 1.8 and hyponatremia at 133. Fluids given in the emergency room at this could be related to dehydration.. Troponin x2 negative. Chest x-ray is normal. Patient received fluids, steroids and will be discharged on Medrol pack. Educated to follow up with the PCP in 1-2 days return to the hospital as needed. Differential diagnosis: Pneumonia, bronchitis, postinfectious bronchiolitis Rationale: Tests considered and ordered secondary to shared decision making include: Previous outside records reviewed: Old ER visits. Risk of complication and/or morbidity or mortality of patient management: None Medications-Per medication reconciliation Need for hospitalization: Patient does not meet criteria for hospitalization. Need for emergency major/minor surgery: No There are no social concerns with this patient. Prescription drug management Prescriptions will include symptomatic care Patient's prior external medical records from other ER visits were reviewed by me as indicated. Prior testing and results from previous visits were reviewed. Prior tests were taken into account with medical decision making and resource utilization, independent historian/historians were used to obtain complete medical history. I independently interpreted the test that were performed, results were reviewed by me and considered findings on radiology if ordered. Medical management and examination interpretation discussions were had by me with other qualified healthcare professionals as indicated for the patient's care. DX & DISP Disposition: Discharge Departure Impression: Primary Impression: Persistent cough after viral respiratory infection Additional Impression: Acute bronchitis Condition: Stable Scripts Albuterol Sulfate (Ventolin Hfa/Proventil Hfa/Proair Hfa) 90 Mcg Puff 1 PUFF IH Q4H PRN for SHORTNESS OF BREATH for 5 Days, #1 INH 0 Refills PHARMACY TO DISPENSE 1 INHALER FOR USE Prov: YAZMIN APARICIO NP 02/03/25 Methylprednisolone (Medrol) 4 Mg Tab.ds.pk 1 TAB PO AD for 6 Days, #21 TAB 0 Refills 6 on day 1 then reduce by one tablet daily until gone Prov: YAZMIN APARICIO NP 02/03/25 Additional Instructions: Your cough was more likely related to post infectious bronchiolitis. Take the sores as prescribed [facility] Return to the hospital as needed. Referrals: NOAM GEORGE MD (PCP) Time of Disposition: 21:59 I have reviewed the case, and I agree with, Diagnosis and Plan YAZMIN APARICIO NP Feb 03, 2025 22:00
[2025-02-03 22:45] VITALS: BP 133/78; PULSE 82; RESP 18; TEMP 98.4; O2SAT 98
== END 2025-02-03 22:41 | disposition home or self-care (01) ==
LOC: EDH 18:57
DX: J20.9 Acute bronchitis, unspecified (principal); R05.9 Cough, unspecified; I25.10 Atherosclerotic heart disease of native coronary artery without angina pectoris; I11.9 Hypertensive heart disease without heart failure; B97.89 Other viral agents as the cause of diseases classified elsewhere; Z79.899 Other long term (current) drug therapy; Z94.7 Corneal transplant status; Z20.822 Contact with and (suspected) exposure to COVID-19
CPT/HCPCS: 99285; 96374; 71045; 87635; 96361; 96375; 84484 ×2; 80048; 83880; 85025; 87880; 87804 ×2; 36415; 93005; J2919; J3490; J7030

== ENCOUNTER 2025-05-06 19:50 | Emergency (ER) | payer OTHER, MEDICARE ==
[~2025-05-06] VITALS: Ht 175.3 cm; Wt 89.8 kg
[~2025-05-06 19:50] MED LIST changes: +ALBUHFA IH; +METH4TAB3 PO
[2025-05-06 20:39] LABS: IMMATURE GRANULOCYTE ABSOLUTE 0.01 K/uL (0-1); NUCLEATED RED BLOOD CELLS 0.0 % (0.0-0.19); PLATELET COUNT (AUTO) 217 K/uL (130-400); RED BLOOD CELL COUNT(AUTO) 4.83 MIL/uL (4.50-6.20); RED CELL DISTRIBUTION WIDTH 15.0 % (11.0-15.5); WHITE BLOOD COUNT (AUTO) 6.8 K/uL (4.8-10.8)
[2025-05-06 20:50] LABS: CREATININE 1.5 mg/dL (0.5-1.3); GLOMERULAR FILTR. RATE CALC 47.0 mL/min (>90); GLUCOSE,RANDOM 112.0 mg/dL (70-105); SODIUM SERUM 136.0 mmol/L (136-145); UREA NITROGEN, BLOOD 22.0 mg/dL (7-18)
--- NOTE | 2025-05-06 20:52 | ERN ---
ED Note History of Present Illness Stated Complaint: C/O DIARRHEA, COUGH W/PHLEGM Chief Complaint: Diarrhea Time Seen by : 20:03 Dictation: Mr. Corley is a 80-year-old male who presented to the emergency room with a multiple complaints including chronic cough that has been going on for months along with sputum which is clear. He states that his cough is mostly at nighttime and he has had some discomfort even in his upper abdomen. He and his stated that he had to bowel movements but there were not watery although he called it as diarrhea. No fever chills or rigors. He admits to gastroesophageal reflux and heartburn symptoms. Worse at night. It does not have a known history of asthma and he has never been evaluated by pulmonary physician or with PFTs. He states that the cough is interfering with his sleep and hence he came in for evaluation. He denied any coughing while eating or choking on food. Temperature 98.2 pulse 74 respirations 20 blood pressure 114/72 with a pulse oximetry of 96% on room air Chronic medical problems include coronary artery disease status post stent placements, hypertension, hypercholesterolemia, history of gastritis, history of respiratory failure requiring intubation in the past, neuropathy, depression and anxiety and history of benzo use chronically, dementia. Allergies: Coded Allergies: paroxetine (Unverified Allergy, Unknown, 03/14/18) Home Meds Active Scripts Albuterol Sulfate (Ventolin Hfa/Proventil Hfa/Proair Hfa) 90 Mcg Puff, 1-2 PUFF IH Q4H PRN for cough for 5 Days, #1 INH 0 Refills PHARMACY TO DISPENSE 1 INHALER FOR USE Prov:LAUREN MERRILL MD 05/06/25 Budesonide/Formoterol Fumarate (Symbicort 160-4.5 Mcg Inhaler) 160 Mcg-4.5 Mcg/Actuation Hfa.aer.ad, 2 PUFF IH BID for 30 Days, #10.2 GM 0 Refills Prov:LAUREN MERRILL MD 05/06/25 Prednisone (Prednisone) 20 Mg Tablet, 1 TAB PO AD for 6 Days, #14 TAB 0 Refills TAKE 1 TAB BY MOUTH THREE TIMES PER DAY X3 DAYS, THEN TAKE 1 TAB BY MOUTH TWICE A DAY X2 DAYS, THEN TAKE 1 TAB BY MOUTH ONCE A DAY X1 DAY. Prov:LAUREN MERRILL MD 05/06/25 Albuterol Sulfate (Ventolin Hfa/Proventil Hfa/Proair Hfa) 90 Mcg Puff, 1 PUFF IH Q4H PRN for SHORTNESS OF BREATH for 5 Days, #1 INH 0 Refills PHARMACY TO DISPENSE 1 INHALER FOR USE Prov:APARICIO,YAZMIN JERRELL 02/03/25 Methylprednisolone (Medrol) 4 Mg Tab.ds.pk, 1 TAB PO AD for 6 Days, #21 TAB 0 Refills 6 on day 1 then reduce by one tablet daily until gone Prov:APARICIOYAZMIN ALLAN 02/03/25 Amoxicillin/Potassium Clav (Augmentin 875-125 Tablet) 1 Each Tablet, 1 EACH PO BID for 7 Days, #14 TAB 0 Refills Prov:DANNA CORDOBA APRN 01/10/21 Furosemide (Lasix 20Mg Tab) 20 Mg Tablet, 20 MG PO DAILY for 30 Days, #30 TAB Prov:HORTENCIA MARTINS Jr., MD 05/22/18 Reported Medications Fluoxetine HCl (Fluoxetine HCl) 20 Mg/5 Ml Solution, 20 MG PO DAILY, ML 03/07/20 Past Medical History Past Medical History: CAD, Dementia, GERD, High Cholesterol, Hypertension, Other Additional Past Medical Hx: HX OF GASTRITIS; NEUROPATHY Surgical History: Other Surgical History Other: CARDIAC STENTS PSYCH History: anxiety, depression Social History: ETOH RN Note Reviewed/Agreed w/PFSH: Yes Review of System Dictation Constitutional: Negative for fever,chills, and weight loss Eyes: Negative for injury, pain,redness, and discharge ENT: Negative for injury,pain or swelling Cardiovascular: Negative for chest pain, palpitations, and edema Respiratory: Negative for shortness of breath, and wheezing, positive for cough, Abdomen/GI: Negative for abdominal pain, nausea, vomiting, and constipation positive for diarrhea, positive for gastroesophageal reflux symptoms Back: Negative for injury and pain : Negative for injury, bleeding and discharge MS/Extremity: Negative for injury and deformity Skin: Negative for rash, and discoloration Neuro: Negative for headache, weakness, numbness, tingling, and seizure Psych: Negative for suicide ideation, homicidal ideation, and hallucinations Initial Vital Sign VS Vital Signs Date Time Temp Pulse Resp B/P (MAP) Pulse Ox O2 Delivery O2 Flow Rate FiO2 05/06/25 19:53 98.2 74 20 114/72 96 Room Air 05/06/25 21:12 0 21 Physical Exam Dictation General: awake, alert, NAD Head/Face: Normocephalic, atraumatic Eyes: PERRL, EOMI, vision at baseline ENT: oral cavity clear, TMs clear, no signs of infection Neck: Trachea midline, supple, no nuchal rigidity Cardiovascular: RRR, normal S1/S2, No MRGs, no JVD Respiratory: End expiratory wheeze to forced expiratory maneuver and coughing. no respiratory distress, No rales Abdomen: Soft, non-tender, non-distended, normal bowel sounds, no guarding or rebound. Skin: Warm, dry, normal turgor, no rash MS/Extremity: Pulses equal, no cyanosis, neurovascular intact, FROM Neuro: COAx4, GCS 15, strength 5/5, CN 2-12 intact, normal cerebellar exam, normal gait, Psych: Normal behavior, mood, and affect normal Extremities-trace edema without any palpable cords, Homans sign is negative Results (Laboratory/Radiology) Laboratory/Radiology Laboratory Tests Test 05/06/25 20:30 White Blood Count 6.8 K/uL (4.8-10.8) Red Blood Count 4.83 MIL/uL (4.50-6.20) Hemoglobin 13.9 g/dL (14.0-18.0) L Hematocrit 44.4 % (42-54) Mean Corpuscular Volume 91.9 fL (79-99) Mean Corpuscular Hemoglobin 28.8 pg (27.0-33.0) Mean Corpuscular Hemoglobin Concent 31.3 g/dL (32.0-36.0) L Red Cell Distribution Width 15.0 % (11.0-15.5) Platelet Count 217 K/uL (130-400) Mean Platelet Volume 10.8 fL (7.5-10.5) H Immature Granulocyte % (Auto) 0.1 % (0-1) Neutrophils (%) (Auto) 56.3 % (40.0-77.0) Lymphocytes (%) (Auto) 30.0 % (21.0-51.0) Monocytes (%) (Auto) 10.4 % (3.0-13.0) Eosinophils (%) (Auto) 2.9 % (0.0-8.0) Basophils (%) (Auto) 0.3 % (0.0-5.0) Neutrophils # (Auto) 3.8 K/uL (1.8-7.7) Lymphocytes # (Auto) 2.0 K/uL (1.0-4.8) Monocytes # (Auto) 0.7 K/uL (0.1-1.0) Eosinophils # (Auto) 0.20 K/uL (0.00-0.70) Basophils # (Auto) 0.02 K/uL (0.00-0.20) Absolute Immature Granulocyte (auto 0.01 K/uL (0-1) Nucleated Red Blood Cells 0.0 % (0.0-0.19) Sodium Level 136 mmol/L (136-145) Potassium Level 4.8 mmol/L (3.5-5.1) Chloride Level 100 mmol/L (101-111) L Carbon Dioxide Level 30 mmol/L (21-32) Blood Urea Nitrogen 22 mg/dL (7-18) H Creatinine 1.5 mg/dL (0.5-1.3) H Glomerular Filtration Rate Calc 47 mL/min (>90) Random Glucose 112 mg/dL (70-105) H Total Calcium 9.7 mg/dL (8.5-10.1) Lipase 29 U/L (16-77) Labs Reviewed?: Yes X-RAY Comment: REASON: chronic cough , loose stool ORDERING PHYSICIAN: LAUREN MERRILL MD PROCEDURE: CXR1VW - CHEST 1VW EXAM: CR Chest, 1 view CLINICAL HISTORY: Chronic cough. COMPARISON: Chest radiograph dated 02/03/2025. FINDINGS: The lungs show no infiltrates or other acute findings. No pleural effusion or pneumothorax. The cardiomediastinal silhouette is within normal limits. No acute osseous abnormality. IMPRESSION: No acute cardiopulmonary process is evident. Compared to the prior study, there is no significant interval change. /[place] DICTATED BY: YANNICK ABBOTT Jr., MD DATE: 05/07/25 0003 ELECTRONICALLY SIGNED BY: YANNICK ABBOTT Jr., MD DATE: 05/07/25 0003 ED Course ED Course Orders Procedure Category Date Status Time Cbc With Differential LAB 05/06/25 Complete 20:06 Basic Metabolic Panel LAB 05/06/25 Complete 20:06 Lipase LAB 05/06/25 Complete 20:06 Pantoprazole 40mg Tab PHA 05/06/25 Complete (Protonix 40mg Tab 21:30 Methylprednisolone PHA 05/06/25 Complete Succ 125mg (Solu-Medr 21:30 Albuterol 0.083% PHA 05/06/25 Complete 2.5mg/3ml (Proventil 21:30 Chest 1vw RAD 05/06/25 Resulted 21:09 Water For PHA 05/06/25 Complete Injection,Sterile 21:22 Albuterol 0.083% PHA 05/06/25 Complete 2.5mg/3ml (Proventil 22:30 Current Medications Medications (Trade) Dose Ordered Sig/Emilie Route PRN Reason Start Time Stop Time Status Last Admin Dose Admin Albuterol Sulfate (Proventil 0.083% 2.5mg/3ml) 2.5MG ONCE ONCE IH 05/06/25 22:30 05/06/25 22:31 DC 05/06/25 22:16 Albuterol Sulfate (Proventil 0.083% 2.5mg/3ml) 2.5MG Q6H PRN IH SHORTNESS OF BREATH 05/06/25 21:30 05/07/25 00:06 DC Methylprednisolone Sodium Succinate (Solu-medROL 125MG) 60 mg ONCE ONCE IVP 05/06/25 21:30 05/06/25 21:31 DC 05/06/25 21:27 Pantoprazole Sodium (PROTonix 40MG TAB) 40 mg ONCE ONCE PO 05/06/25 21:30 05/06/25 21:31 DC 05/06/25 21:27 Sterile Water (Sterile Water, Injection) 10 ml STK-MED ONCE .ROUTE 05/06/25 21:22 05/06/25 21:22 DC 05/06/25 21:27 Vital Signs Date Time Temp Pulse Resp B/P (MAP) Pulse Ox O2 Delivery O2 Flow Rate FiO2 05/07/25 00:08 98.2 72 16 124/64 97 Room Air* 0 21 05/06/25 22:17 66 18 05/06/25 21:12 68 16 126/61 97 Room Air* 0 21 05/06/25 19:53 98.2 74 20 114/72 96 Room Air Medical Decision Making MDM Differential diagnosis-infectious colitis, enterocolitis, diverticulitis among fecal impaction with the overflow diarrhea bacterial overgrowth syndrome, gastroenteritis, C difficile colitis Chronic cough could be related to silent microaspiration from gastroesophageal reflux disease, cough variant asthma, pulmonary parenchymal problems. Mr. Corley is a 80-year-old male who presented to the emergency room with a multiple complaints including chronic cough that has been going on for months along with sputum which is clear. He states that his cough is mostly at nighttime and he has had some discomfort even in his upper abdomen. He and his stated that he had to bowel movements but there were not watery although he called it as diarrhea. No fever chills or rigors. He admits to gastroesophageal reflux and heartburn symptoms. Worse at night. It does not have a known history of asthma and he has never been evaluated by pulmonary physician or with PFTs. He states that the cough is interfering with his sleep and hence he came in for evaluation. He denied any coughing while eating or choking on food. Temperature 98.2 pulse 74 respirations 20 blood pressure 114/72 with a pulse oximetry of 96% on room air Chronic medical problems include coronary artery disease status post stent placements, hypertension, hypercholesterolemia, history of gastritis, history of respiratory failure requiring intubation in the past, neuropathy, depression and anxiety and history of benzo use chronically, dementia. I reviewed labs CBC is with a normal limits BNP 7 shows a BUN and creatinine of 22 and 1.5 lipase is 29. Chest x-ray is unremarkable for any acute infiltrates. I updated the patient and spouse on all the lab results and my thoughts of chronic cough being possibly related to microaspiration from gastroesophageal reflux. A trial of steroid and bronchodilator therapy we will be given. Patient responded very well to the bronchodilator therapy and he will be discharged to home on a short course of steroid and bronchodilator and I recommended that he should follow up with his primary care physician and if symptoms persist be referred to reconciliation analyst for PFTs and additional measures. Rationale: Tests considered and ordered secondary to shared decision making include: Lab work and chest x-ray Previous outside records reviewed: Old ER visits. Risk of complication and/or morbidity or mortality of patient management: None Medications-Per medication reconciliation Need for hospitalization: Patient does not meet criteria for hospitalization. Need for emergency major/minor surgery: No There are no social concerns with this patient. Prescription drug management Prescriptions will include symptomatic care Patient's prior external medical records from other ER visits were reviewed by me as indicated. Prior testing and results from previous visits were reviewed. Prior tests were taken into account with medical decision making and resource utilization, independent historian/historians were used to obtain complete medical history. I independently interpreted the test that were performed, results were reviewed by me and considered findings on radiology if ordered. Medical management and examination interpretation discussions were had by me with other qualified healthcare professionals as indicated for the patient's care. Problem List Problem List: (1) Chronic cough due to gastroesophageal reflux disease (2) Reactive airway disease (3) Diarrhea DX & DISP Disposition: Discharge Departure Impression: Primary Impression: Chronic cough due to gastroesophageal reflux disease Additional Impressions: Reactive airway disease, Diarrhea Condition: Stable Scripts Albuterol Sulfate (Ventolin Hfa/Proventil Hfa/Proair Hfa) 90 Mcg Puff 1-2 PUFF IH Q4H PRN for cough for 5 Days, #1 INH 0 Refills PHARMACY TO DISPENSE 1 INHALER FOR USE Prov: LAUREN MERRILL MD 05/06/25 Budesonide/Formoterol Fumarate (Symbicort 160-4.5 Mcg Inhaler) 160 Mcg-4.5 Mcg/Actuation Hfa.aer.ad 2 PUFF IH BID for 30 Days, #10.2 GM 0 Refills Prov: LAUREN MERRILL MD 05/06/25 Prednisone (Prednisone) 20 Mg Tablet 1 TAB PO AD for 6 Days, #14 TAB 0 Refills TAKE 1 TAB BY MOUTH THREE TIMES PER DAY X3 DAYS, THEN TAKE 1 TAB BY MOUTH TWICE A DAY X2 DAYS, THEN TAKE 1 TAB BY MOUTH ONCE A DAY X1 DAY. Prov: LAUREN MERRILL MD 05/06/25 Additional Instructions: Patient and the caregiver have been informed of all the diagnostic tests and the imaging conducted during the today's visit to the emergency room and has verbalized understanding of the results I have personally reviewed and interpreted all diagnostic exams performed here in the ER today as well as the vital signs documented by the nursing staff. The patient is now being discharged to home and should follow up with the primary care physician or the specialist as directed by the ER staff. Follow-up with primary care provider in 1 to 2 days. Take medications as directed here in the emergency room. Okay to continue home medications unless otherwise discussed during your visit in the emergency room today. Return to your nearest emergency room if symptoms worsen or if there is no improvement. Call 911 if you need immediate assistance. Take Tylenol or Motrin [id number] as needed and if no contraindications are present. Increase oral hydration. A wound culture or urine culture was ordered here in the emergency room department please follow-up with primary care provider and advise them to get repeat ports from our facility. If you had any Dean wrap/splints that were applied here, please do not remove them until you see your primary care or specialty. Referrals: NOAM GEORGE MD (PCP) LAUREN MERRILL MD May 06, 2025 20:52
[2025-05-06] MEDS: ALBUTEROL 0.083% 2.5 MG/3 ML INH IH PRN (22:16)
[2025-05-06] MEDS: ALBUTEROL 0.083% 2.5 MG/3 ML INH IH ONE (22:16)
[2025-05-06 22:17] VITALS: PULSE 66; RESP 18
[2025-05-06] MEDS ORDERED: PRED20TA3 PO (22:36)
[2025-05-06] MEDS ORDERED: ALBUHFA IH (22:36)
[2025-05-06] MEDS ORDERED: BUDE10.2 IH (22:36)
--- NOTE | 2025-05-06 23:04 | HMCIMG ---
EXAM: CR Chest, 1 view CLINICAL HISTORY: Chronic cough. COMPARISON: Chest radiograph dated 02/03/2025. FINDINGS: The lungs show no infiltrates or other acute findings. No pleural effusion or pneumothorax. The cardiomediastinal silhouette is within normal limits. No acute osseous abnormality. IMPRESSION: No acute cardiopulmonary process is evident. Compared to the prior study, there is no significant interval change. /[place]
[2025-05-07 00:08] VITALS: BP 124/64; PULSE 72; RESP 16; TEMP 98.2; O2SAT 97
== END 2025-05-07 00:16 | disposition home or self-care (01) ==
LOC: EDH 19:50
DX: R05.3 Chronic cough (principal); J45.909 Unspecified asthma, uncomplicated; R19.7 Diarrhea, unspecified; K21.9 Gastro-esophageal reflux disease without esophagitis; I25.10 Atherosclerotic heart disease of native coronary artery without angina pectoris; I10 Essential (primary) hypertension; E78.00 Pure hypercholesterolemia, unspecified; F32.A Depression, unspecified; F41.9 Anxiety disorder, unspecified; F03.90 Unspecified dementia, unspecified severity, without behavioral disturbance, psychotic disturbance, mood disturbance, and anxiety; Z88.8 Allergy status to other drugs, medicaments and biological substances; Z79.899 Other long term (current) drug therapy; Z79.51 Long term (current) use of inhaled steroids; Z87.19 Personal history of other diseases of the digestive system; Z95.5 Presence of coronary angioplasty implant and graft
CPT/HCPCS: 99284; 96374; 71045; 80048; 83690; 85025; 36415; 94640; J2919